=== PATIENT | male | born 1945 | race Caucasian/White ===

== ENCOUNTER → 2017-01-11 | Outpatient (CLI) | payer BC ==
[~2017-01-11] MED LIST: ESOM20CA PO; LPT40 PO; NAPR250T43 PO; TYLENOL PO
[2017-01-11 12:59] LABS: BLOOD UREA NITROGEN 25 mg/dl (7-18); BUN/CREATININE RATIO 20.6 (10-20); CARBON DIOXIDE 27 mmol/L (21-32); CHLORIDE 107 mmol/L (98-107); CHOLESTEROL 193 mg/dl (0-200); GLUCOSE 92 mg/dl (70-99); MAGNESIUM 2.3 mg/dl (1.8-2.4); POTASSIUM 4.3 mmol/L (3.5-5.1); SODIUM 143 mmol/L (136-145)
[2017-01-11 13:03] LABS: ALB/GLOB RATIO 1.2 (0.9-2); ALKALINE PHOSPHATASE 75 U/L (45-117); ALT/SGPT 25 U/L (12-78); AST/SGOT 19 U/L (15-37); CHOLESTEROL/HDL RATIO 3.3; HDL CHOLESTEROL 58 mg/dl; LDL CHOLESTEROL CALCULATED 117 mg/dl; TRIGLYCERIDES 90 mg/dl (0-150); VERY LOW DENSITY LIPOPROT CALC 18 mg/dl
--- NOTE | 2017-01-19 11:59 | CODING QUERY MEDICAL NECESSITY ---
CQSUPPORTING DIAGNOSIS NEEDED A supporting diagnosis is required for the test/procedure performed on this patient in order for us to be reimbursed by the patient's insurance. Please provide a supporting diagnosis for the following test/procedure listed below next to the test name along with your signature. *If there is no additional diagnosis for this patient that would support the following test/procedure please document that below next to the test/procedure. Test(s)/Procedure(s) that require a supporting diagnosis: DOS 01/11/17 VITAMIN D TEST PROSTATE SPECIFIC TEST (PSA) Provider Signature: Date: Thank you [facility] Once completed, please kindly fax back to [phone] For questions please call [phone]
== END | disposition home or self-care (01) ==
LOC: C.LABPVFM 08:01
PROVIDERS: ATTEND Family Medicine
DX: E78.5 Hyperlipidemia, unspecified (principal); K21.9 Gastro-esophageal reflux disease without esophagitis; I10 Essential (primary) hypertension; Z13.21 Encounter for screening for nutritional disorder; Z12.5 Encounter for screening for malignant neoplasm of prostate

== ENCOUNTER → 2017-03-14 | Outpatient (CLI) | payer BC ==
--- NOTE | 2017-03-14 10:15 | DIAGNOSTIC IMAGING REPORT ---
RIGHT KNEE 1 OR 2 VIEWS ROUTINE, RIGHT KNEES, AP STANDING CLINICAL HISTORY: ARTHRITIS, RIGHT KNEE PAIN Right COMPARISON STUDY: None. FINDINGS: There is moderate to severe right and mild left cartilage space narrowing within the medial compartments of the knees. There is also small marginal osteophytes within the right patella. Probable small right knee effusion. No fracture or dislocation. IMPRESSION: Moderate to severe right and mild left osteoarthritis within the medial compartments of the knees. Probable small right knee effusion. Electronically signed by: Yahir Nunez M.D. 03/14/2017 10:14 AM Dictated Date/Time: 03/14/2017 10:12 AM
== END | disposition home or self-care (01) ==
LOC: C.RADPV 09:29
PROVIDERS: ATTEND Neuromusculoskeletal Medicine & OMM
DX: M19.90 Unspecified osteoarthritis, unspecified site (principal); M25.561 Pain in right knee

== ENCOUNTER → 2017-09-22 | Outpatient (CLI) | payer BC ==
[~2017-09-22] MED LIST changes: +PERFLUTREN LIPID MICROSPHERE (DEFINITY) IV ONE
--- NOTE | 2017-09-22 14:15 | EXERCISE STRESS ECHO ---
*NOTICE TO RECEIVING CONSTITUTION PARTY AGENCY This information is strictly Confidential and protected under [place] law. [place] law prohibits you from making any further disclosure of this information unless further disclosure is expressly permitted by the written consent of the person to whom it pertains or is authorized by law. A general authorization for the release of medical or other information is not sufficient for this purpose. Hospital accepts no responsibility if the information is made available to any other person, INCLUDING THE PATIENT. Interpretation Summary * Name: BASHIR MCNULTY II Study Date: 09/22/2017 11:41 AM BP: 157/95 mmHg * Patient Location: [facility] HR: 83 * : 1945 (M/d/yyyy) Gender: Male Height: 71 in * Age: 72 yrs Ethnicity: [place] Weight: 210 lb * Ordering Physician: Lilibeth Bonner * Referring Physician: Lilibeth BonnerRJeffNYessy * Performed By: Reva Yin RDCS * * Reason For Study: Abnormal EKG * BSA: 2.2 m2 * -- Conclusions -- * 1. Normal stress echocardiogram at 6.7 METS and a peak heart rate of 95% predicted maximum. * 2. No exercise-induced chest pain. * 3. No EKG changes. * 4. Baseline echocardiogram notes normal left ventricular systolic function and evidence of diastolic dysfunction. Procedure Details * ECHOEX, CPT #[id number] * ECHO DOPPLER, CPT #[id number] * ECHO COLOR FLOW, CPT #[id number] * A contrast injection of Definity was performed to improve assessment of LV function. * Contrast was injected into an intravenous site in the left arm. * One vial of Definity ultrasound contrast was diluted in normal saline to a total volume of 10 ml. A total of '5' ml of solution was administered during imaging. * Lot # [id number] of Definity utilized for procedure. * Expiration date OCT 23. * The attending nurse who injected the contrast agent was Cary Adame RN. Left Ventricle * The left ventricle is normal in size. * There is borderline concentric left ventricular hypertrophy. * Ejection Fraction = 60-65%. * Resting wall motion: Normal. Stress wall motion: Appropriate increase in Left ventricular systolic function and decrease in cavity size. No stress induced segmental wall motion abnormalities. Right Ventricle * The right ventricle is not well visualized. * The right ventricular systolic function is normal as assessed by tricuspid annular plane systolic excursion (TAPSE) (normal >1.5 cm). Atria * The left atrium is moderately dilated. * Right atrium not well visualized. * There is no evidence of atrial septal defect, but resolution does not allow assessment for a patent foramen ovale. Mitral Valve * The mitral valve anatomy is normal. * There is no mitral valve stenosis. * There is trace mitral regurgitation. Tricuspid Valve * The tricuspid valve is not well visualized, but is grossly normal. * Significant tricuspid regurgitation is absent. Aortic Valve * The aortic valve is normal in structure and function. * No hemodynamically significant valvular aortic stenosis. * There is no significant aortic regurgitation. Pulmonic Valve * The pulmonary valve is not well seen, but the Doppler examination is normal without significant regurgitation or stenosis. Great Vessels * The aortic root and proximal ascending aorta are normal sized. Pericardium * There is no pericardial effusion. Stress Parameters * The baseline ECG displays normal sinus rhythm. * Stress ECG: No ST changes. No arrhythmias. * The stress portion of this study was personally supervised by the undersigned interpreting physician. * Rest heart rate was '83' BPM. * Rest blood pressure was '157/95' * Maximum heart rate achieved was 181 bpm. * Maximum heart rate was 120 % of maximum age-predicted heart rate. * Maximum blood pressure was '213/117' * Total exercise time was '4:49' * Maximum exercise MET level achieved was '6.70' METS * Maximum treadmill speed was '2.50' miles per hour. * Maximum treadmill elevation was '12.00'% grade. * Exercise was terminated due to 'achieving target heart rate' Left Ventricular Diastolic Function * Grade I diastolic dysfunction, (abnormal relaxation pattern). MMode 2D Measurements and Calculations IVSd 1.1 cm LVIDd 4.8 cm LVIDs 3.3 cm LVPWd 1.1 cm IVS/LVPW 0.97 FS 31.0 % EDV(Teich) 106.6 ml ESV(Teich) 44.1 ml EF(Teich) 58.6 % EDV(cubed) 109.4 ml ESV(cubed) 35.9 ml EF(cubed) 67.1 % LV mass(C)d 186.9 grams LV mass(C)dI 86.8 grams/m\S\2 SV(Teich) 62.5 ml SI(Teich) 29.0 ml/m\S\2 SV(cubed) 73.4 ml SI(cubed) 34.1 ml/m\S\2 Ao root diam 3.3 cm Ao root area 8.6 cm\S\2 ACS 1.9 cm LA dimension 3.3 cm asc Aorta Diam 3.3 cm LA/Ao 0.98 LVOT diam 2.0 cm LVOT area 3.2 cm\S\2 LVAd ap4 26.6 cm\S\2 LVLd ap4 7.4 cm EDV(MOD-sp4) 77.5 ml EDV(sp4-el) 80.8 ml LVAs ap4 14.4 cm\S\2 LVLs ap4 6.2 cm ESV(MOD-sp4) 28.0 ml ESV(sp4-el) 28.5 ml EF(MOD-sp4) 63.9 % EF(sp4-el) 64.7 % LVAd ap2 21.7 cm\S\2 LVLd ap2 6.7 cm EDV(MOD-sp2) 57.1 ml EDV(sp2-el) 59.7 ml LVAs ap2 12.0 cm\S\2 LVLs ap2 5.7 cm ESV(MOD-sp2) 20.1 ml ESV(sp2-el) 21.5 ml EF(MOD-sp2) 64.8 % EF(sp2-el) 64.0 % LVLd %diff -10.14 % EDV(MOD-bp) 69.4 ml LVLs %diff -8.13 % ESV(MOD-bp) 24.0 ml EF(MOD-bp) 65.5 % SV(MOD-sp4) 49.6 ml SI(MOD-sp4) 23.0 ml/m\S\2 SV(MOD-sp2) 37.0 ml SI(MOD-sp2) 17.2 ml/m\S\2 SV(MOD-bp) 45.4 ml SI(MOD-bp) 21.1 ml/m\S\2 SV(sp4-el) 52.3 ml SI(sp4-el) 24.3 ml/m\S\2 SV(sp2-el) 38.2 ml SI(sp2-el) 17.7 ml/m\S\2 Doppler Measurements and Calculations MV E max kassidy 50.0 cm/sec MV A max kassidy 63.5 cm/sec MV E/A 0.79 MV dec time 0.29 sec Ao V2 max 115.4 cm/sec Ao max PG 5.3 mmHg Ao max PG (full) 1.6 mmHg BEBE(V,A) 2.6 cm\S\2 BEBE(V,D) 2.6 cm\S\2 LV V1 max PG 3.7 mmHg LV V1 max 96.0 cm/sec PA V2 max 78.7 cm/sec PA max PG 2.5 mmHg PA acc slope 701.3 cm/sec\S\2 PA acc time 0.08 sec PA pr(Accel) 44.1 mmHg
== END | disposition home or self-care (01) ==
LOC: C.CPL 11:24
PROVIDERS: ATTEND Nurse Practitioner
DX: R94.31 Abnormal electrocardiogram [ECG] [EKG] (principal); R06.09 Other forms of dyspnea; I49.9 Cardiac arrhythmia, unspecified

== ENCOUNTER → 2018-01-15 | Outpatient (CLI) | payer BC ==
[~2018-01-15] MED LIST changes: -PERFLUTREN LIPID MICROSPHERE (DEFINITY) IV ONE
[2018-01-15 13:15] LABS: BLOOD UREA NITROGEN 22 mg/dl (7-18); CALCIUM 9.1 mg/dl (8.5-10.1); CARBON DIOXIDE 31 mmol/L (21-32); CHOLESTEROL 144 mg/dl (0-200); CREATININE 1.28 mg/dl (0.60-1.40); GLUCOSE 93 mg/dl (70-99); POTASSIUM 4.4 mmol/L (3.5-5.1); SODIUM 140 mmol/L (136-145)
[2018-01-15 13:19] LABS: LDL CHOLESTEROL CALCULATED 79 mg/dl
== END | disposition home or self-care (01) ==
LOC: C.LABPVFM 08:29
PROVIDERS: ATTEND Nurse Practitioner
DX: I10 Essential (primary) hypertension (principal); E78.5 Hyperlipidemia, unspecified

== ENCOUNTER 2019-12-10 04:51 | Observation (INO) ==
--- NOTE | 2019-11-13 13:33 | PAT Medication Instructions ---
Medication Instructions Date of Service November 13, 2019 Home Medications Medication Instructions Recorded esomeprazole magnesium 20 mg 20 mg PO DAILY PRN #90 cap 08/01/19 capsule,delayed release esomeprazole magnesium 20 mg capsule,delayed release 20 mg PO DAILY PRN atorvastatin 20 mg PO QAM celecoxib 200 mg PO QAM lisinopril 20 mg PO QAM turmeric 400 mg PO QAM ASK your surgeon for instructions celecoxib 200 mg PO QAM STOP taking 2 weeks before surgery (or as soon as possible if surgery is within 2 weeks) turmeric 400 mg PO QAM DO NOT take the morning of surgery lisinopril 20 mg PO QAM Take morning of surgery With a small sip of water, OTHERWISE NOTHING TO EAT OR DRINK AFTER MIDNIGHT: esomeprazole magnesium 20 mg capsule,delayed release 20 mg PO DAILY PRN (if needed) atorvastatin 20 mg PO QAM Take evening before surgery esomeprazole magnesium 20 mg capsule,delayed release 20 mg PO DAILY PRN (if needed) Other Notes If you have any questions please call us at [phone] or [phone] or [phone] or [phone]
--- NOTE | 2019-11-14 09:41 | Anesthesiology Consultation ---
Date of Service November 14, 2019 Assessment & Plan (1) Encounter for pre-operative examination: New onset a. flutter: patient denied cardiopulmonary complaints at PAT visit and vitals unremarkable. Patient brought to ER for further evaluation. Surgeon office made aware. Patient evaluated at [facility] ER 11/14/19. Patient asymptomatic and rate controlled. Discussed recommendation to start Eliquis but patient wishes to defer at this time (patient made aware of the risks/benefits). Patient will need cardiology preop evaluation prior to surgery- he is scheduled to see cardiology 11/27/19. Awaiting cardiology office visit note. Chart Review Chart Review: Patient seen in Pre Admission Testing Teaching & Discussion Pre-Anesthesia Teaching/Discussion Notes: Instructed NPO after midnight before surgery,except medications with 15 cc of water. Medication instructions provided according to the [facility] guidelines. History Surgery Operation Date: 12/10/19 12:30 Proposed Procedures p Right Total Knee Arthroplasty - Amadou Liang MD Height/Weight Height: 5 ft 11 in Weight: 99.9 kg Allergies Allergy/AdvReac Type Severity Reaction Status Date / Time No Known Drug Allergies Allergy Verified 11/14/19 11:30 Medications Home Medications Medication Instructions Recorded Confirmed Last Taken esomeprazole magnesium 20 mg 20 mg PO DAILY PRN #90 cap 08/01/19 11/14/19 11/14/19 capsule,delayed release atorvastatin 20 mg PO QAM 11/11/19 11/14/19 11/14/19 celecoxib 200 mg PO QAM 11/11/19 11/14/19 11/14/19 lisinopril 20 mg PO QAM 11/11/19 11/14/19 11/14/19 turmeric 400 mg PO QAM 11/11/19 11/14/19 11/14/19 Wheeled Walker #1 ea 11/14/19 11/14/19 Unknown Past Medical History Medical History Arthritis Atrial flutter new onset diagnosed at PAT visit 11/14/19- sent to [facility] ER DJD (degenerative joint disease) of knee GERD (gastroesophageal reflux disease) controlled Hyperlipidemia Hypertension Osteoarthritis Renal insufficiency, mild Exercise / Class Metabolic Activity II 4-5 Yardwork/Stairs/Walk up hill Past Family History Family History Father Family hx of colon cancer Other Myocardial infarction Past Surgical History Surgical History History of testicular surgery REMOVAL CYST Hx of colonoscopy Hx of hand surgery RIGHT RING FINGER (2/2 INFECTION) 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 Physical Exam Vital Signs VITALS BP 154/92 P 71 TEMP 98.9 SP02 RESP 16 PHYSICAL Mildly decreased cervical exentsion Full TMJ range of motion. TMD 4 finger breaths Mallampati Score 3 Dentition: intact Lungs: clear throughout to auscultation Cardiac: regular rate and rhythm, no murmurs noted Spine: normal Carotid arteries: negative bruit Extremities: no edema Testing Laboratory Results 11/14/19 10:26 11/14/19 10:26 PT 10.7 Seconds (9.0-12.0) 11/14/19 10:26 INR 1.0 (0.9-1.1) 11/14/19 10:26 APTT 26.2 Seconds (21.0-31.0) 11/14/19 10:26 Blood Type A Negative 11/14/19 10:26 Antibody Screen NEGATIVE 11/14/19 10:26 Electrocardiogram Date: 11/14/19 A. flutter with variable AVB at 84bpm. iRBBB. Possible inferior infarct, age undetermined. Chest X-Ray Date: 11/14/19 Moderate cardiac enlargement. Tortuosity thoracic aorta. Small fixed hiatal hernia. Lungs otherwise appear clear. Stress Test Date: 09/22/17 Type: exercise Normal stress ECHO at 6.7 METS. 95% MPHR. No induced chest pain. No EKG changes. EF 60-65%. Borderline cLVH. Moderate LAD. No significant valvular disease.
[2019-11-14 11:15] LABS: Basophils # (auto) 0.02 K/uL (0-0.2); Basophils % (auto) 0.3 %; Eosinophils # (auto) 0.13 K/uL (0-0.5); Eosinophils % (auto) 2.3 %; Hemoglobin 15.8 g/dL (14.0-18.0); Immature Granulocytes # (auto) 0.01 K/uL (0.00-0.02); Immature Granulocytes % (auto) 0.2 %; Lymphocytes # (auto) 0.75 K/uL (1.2-3.4); Mean Corpuscular Hemoglobin 32.8 pg (25-34); Mean Corpuscular Hgb Conc 33.6 g/dL (32-36); Mean Corpuscular Volume 97.5 fL (80-100); Mean Platelet Volume 11.1 fL (7.4-10.4); Monocytes # (auto) 0.49 K/uL (0.11-0.59); Monocytes % (auto) 8.5 %; Neutrophils # (auto) 4.35 K/uL (1.4-6.5); Neutrophils % (auto) 75.7 %; Platelet Count 137 K/uL (130-400); RDW Coefficient of Variation 13.6 % (11.5-14.5); RDW Standard Deviation 48.7 fL (36.4-46.3); Red Blood Count 4.82 M/uL (4.7-6.1); White Blood Count 5.75 K/uL (4.8-10.8)
[2019-11-14 11:23] LABS: BUN Creatinine Ratio 17.3 (10-20); Calcium 9.1 mg/dl (8.5-10.1); Creatinine Clr Calc Pharmacy 58.7 ml/min; Est GFR (African American) 59.3; Est GFR (Non-African American) 51.2; Potassium 4.5 mmol/L (3.5-5.1)
[2019-11-14 11:37] LABS: Partial Thromboplastin Time 26.2 Seconds (21.0-31.0); Prothrombin Time 10.7 Seconds (9.0-12.0)
--- NOTE | 2019-11-14 23:41 | Electrocardiogram Report ---
Test Reason : Blood Pressure : / mmHG Vent. Rate : 099 BPM Atrial Rate : 264 BPM P-R Int : 000 ms QRS Dur : 102 ms QT Int : 350 ms P-R-T Axes : 000 113 -15 degrees QTc Int : 449 ms Atrial flutter with variable A-V block Incomplete right bundle branch block Possible Right ventricular hypertrophy T wave abnormality, consider inferior ischemia Abnormal ECG No previous ECGs available Confirmed by Cooper Villegas ([id number]) on 11/14/2019 11:41:40 PM Referred By: Amadou Liang Confirmed By:Cooper Villegas
--- NOTE | 2019-12-06 20:30 | History and Physical Report ---
DATE OF ADMISSION: 12/10/2019 CHIEF COMPLAINT: Bilateral knee pain and discomfort, right side greater than left. HISTORY OF PRESENT ILLNESS: The patient is a 74-year-old male, previous yoon from [place] who presents on a referral from my partner, Dr. Rhodes, for surgical treatment of his knees. He has got about 10-year history of increasing bilateral knee pain and discomfort, right side a bit worse than the left. He has been through extensive conservative treatment in the past and is not interested in more conservative care. He is limited by his knee pain. He is walking less due to his knee pain and using the 4-kerns more. It is mostly just weightbearing pain. The more he walks, the more it hurts. He has difficulty going up and down steps. He would like to consider surgery. PAST MEDICAL HISTORY: 1. Congenital heart disease with subsequent surgery at age 10. 2. History of recent atrial flutter with rate control with beta martha and anticoagulation. 3. Hypertension. 4. Elevated cholesterol. 5. Gastroesophageal reflux disease. PAST SURGICAL HISTORY: Includes heart surgery in 8 in [place] for what sounds like a patent foramen ovale. ALLERGIES: None. CURRENT MEDICINES: Include: 1. Celebrex. 2. Nexium. 3. Atorvastatin 20 mg. 4. Omeprazole 20 mg. 5. Lisinopril 20 mg a day. 6. Turmeric 400 mg a day. 7. Metoprolol for rate control of his atrial flutter. 8. Eliquis 5 mg twice a day. SOCIAL HISTORY: A 74-year-old male. He is . Retired yoon. Does not smoke. No significant alcohol intake. FAMILY HISTORY: Noncontributory. REVIEW OF SYSTEMS: Significant for this congenital heart abnormality. He did have a recent diagnosis of atrial flutter and now on a beta martha as well as Eliquis. He has had extensive cardiac workup and cleared for surgery. No known bleeding problems. PHYSICAL EXAMINATION: GENERAL: Shows a healthy, pleasant, elderly male. Looks to be in good health. HEENT: Benign. NECK: Supple, no lymphadenopathy. LUNGS: Clear to auscultation. HEART: Regular rate and rhythm. ABDOMEN: Soft, nontender, nondistended. EXTREMITIES: Grossly neurovascularly intact except as follows: Examination of the right knee reveals the patient ambulates independently. He has got varus alignment to his knee. He is tender over the medial joint line. Range of motion is 5 degrees short of full extension to 120 degrees of flexion. There is no gross instability. No pain with hip motion. Negative straight leg raise. X-RAYS: X-rays of the right knee revealed advanced right knee DJD. He has got complete loss of his medial joint space. He has subchondral sclerosis with osteophytes primarily in the medial compartment. ASSESSMENT: A 74-year-old male yoon with bilateral knee pain, degenerative joint disease, right side worse than the left. He is not interested in further conservative care and wants to proceed with right knee replacement. PLAN: We talked about treatment. He would like to proceed with right knee replacement. The risks and benefits of right total knee replacement were explained to the patient including but not limited to DVT, PE, , infection, neurological injury, vascular injury, bleeding problem, pain, limited range of motion, stiffness, failure to relieve symptoms, incomplete relief of symptoms, need for further surgery in the future, fracture, leg length inequality, nerve palsy, etc. The patient understands and desires to proceed. Informed consent was obtained. At the time of his preoperative workup, we sent him to the hospital and he developed some cardiac symptoms. He was seen in the ER and diagnosed with atrial flutter. Since then, he has had an extensive cardiac workup including an echo, which showed pretty good heart function. He has been put on a beta martha and anticoagulation and cleared for surgery. He will need to stop this Eliquis 3 days preop. Take the metoprolol on the morning of surgery. He is planning to be discharged to home using [facility] home health program. DEEDEE
[2019-12-10] MEDS ORDERED: CEFAZOLIN 2000MG 2,000 MG/15 ML SYR IV SCH (06:00)
[2019-12-10] MEDS ORDERED: TRANEXAMIC ACID / 0.7% NACL 1,000 MG/100 ML BAG IV SCH (06:00)
[2019-12-10] MEDS ORDERED: METOCLOPRAMIDE HCL 10 MG TABLET PO SCH (06:00)
[2019-12-10] MEDS ORDERED: FAMOTIDINE 20 MG TAB PO SCH (06:00)
[2019-12-10] MEDS ORDERED: LR 60ML/HR IV SCH (06:00)
[2019-12-10] MEDS ORDERED: BUPIVACAINE LIPOSOME/PF 266 MG, BUPIVACAINE/EPINEPHRINE 50 ML, SODIUM CHLORIDE 0.9% 30 ... INFIL SCH (06:00)
[2019-12-10] MEDS ORDERED: LR 500ML BOLUS, THEN 15ML/HR IV SCH (06:00)
[2019-12-10] MEDS ORDERED: ACETAMINOPHEN 500 MG TAB PO SCH (06:00)
[2019-12-10] MEDS ORDERED: GABAPENTIN 300 MG CAP PO SCH (06:00)
[2019-12-10] MEDS ORDERED: fentaNYL citrate 100 MCG/2 ML VIAL ONE (06:23)
[2019-12-10] MEDS ORDERED: MIDAZOLAM HCL 1 MG/ML 2ML VIAL ONE (06:23)
[2019-12-10] MEDS ORDERED: BUPIVACAINE/EPINEPHRINE 0.25% 1:200,000 30 ML VIAL ONE (06:31)
[2019-12-10] MEDS ORDERED: BUPIVACAINE LIPOSOME 1.3% 266 MG/20 ML VIAL ONE (06:31)
[2019-12-10] MEDS ORDERED: SODIUM CHLORIDE 0.9% PF 50 ML VIAL ONE (06:31)
[2019-12-10] MEDS ORDERED: BACITRACIN INJ 50,000 UNIT VIAL ONE (06:31)
[2019-12-10] MEDS ORDERED: fentaNYL citrate 100 MCG/2 ML VIAL IV PRN (06:35)
[2019-12-10] MEDS ORDERED: ATROPINE SULFATE 0.1 MG/ML 10ML SYR IV PRN (06:35)
[2019-12-10] MEDS ORDERED: BUPIVACAINE 0.5 % 5 MG/1 ML PF 10ML VIAL ONE (06:35)
[2019-12-10] MEDS ORDERED: ePHEDrine sulfate 50 MG/ML AMP IV PRN (06:35)
[2019-12-10] MEDS ORDERED: ONDANSETRON INJ 2 MG/ML 2 ML VIAL IV PRN ×2 (06:35→09:46)
--- NOTE | 2019-12-10 06:48 | History & Physical Bridge Note ---
Date of Service December 10, 2019 History & Physical Bridge Note I have examined the patient, reviewed the History & Physical and in the interval since the performance of the History & Physical I have noted the following changes of clinical significance: no changes noted
[2019-12-10] MEDS ORDERED: PROPOFOL IV EMULSION 10 MG/ML 20 ML VIAL IV ONE (07:05)
--- NOTE | 2019-12-10 08:39 | Post Operative Brief Note ---
PG Immediate Post Op with CF Date of Surgery December 10, 2019 Pre & Post Diagnosis Operation Date: 12/10/19 07:00 Pre-Op Diagnosis: Right Knee Advanced Degenerative Joint Disease Post-Op Diagnosis: Right Knee Advanced Degenerative Joint Disease I identified the patient and participated in the time-out.: Yes Procedure Operation Date: 12/10/19 07:00 Actual Procedures p Right Total Knee Arthroplasty(Right) - Amadou Liang MD Surgeon Amadou Liang MD Quality Eng Thuan, PAC Estimated Blood Loss 50 Findings Consistent with Post-Op Diagnosis Fluids 1100 cc Specimens Specimen Description: A. Right Knee Bone and Tissue Drains Esquivel Catheter (A 16 [place]oth[place] esquivel catheter was inserted by HONG Mitchell, without difficulty, clear yellow urine obtained, output to be monitored by Anesthesia.) Anesthesia Type Spinal MAC Complications none Disposition Accompanied Patient To Recovery: No Disposition: Recovery Room
--- NOTE | 2019-12-10 08:50 | Operative Report ---
Post Operative Report Pre & Post Diagnosis Operation Date: 12/10/19 07:00 Pre-Op Diagnosis: Right Knee Advanced Degenerative Joint Disease Post-Op Diagnosis: Right Knee Advanced Degenerative Joint Disease I identified the patient and participated in the time-out.: Yes Procedure Operation Date: 12/10/19 07:00 Actual Procedures p Right Total Knee Arthroplasty(Right) - Amadou Liang MD Surgeon Amadou Liang MD Bomb Technician Thuan, PAC Estimated Blood Loss 50 Findings Consistent with Post-Op Diagnosis Operative findings revealed advanced right knee DJD. He had extensive grade 4 changes in all 3 compartments. He had eburnation of the medial femoral condyle medial tibial plateau. His most severe changes were medially. He had a moderate-sized joint effusion. He had a fixed varus deformity to his knee. Fluids 1100 cc. Specimens Right knee sent for pathology. Drains None. Anesthesia Type Spinal MAC Complications none Disposition Accompanied Patient To Recovery: No Disposition: Recovery Room Indications Patient is a 74-year-old fairly active yoon who is had a long history of bilateral knee pain discomfort right side greater than left. Is been through extensive conservative treatment the past which is become less successful. He continues to be bothered by disabling and knee pain. X-rays show advanced DJD. Elected proceed with surgical treatment. Description of Procedure Operative implants consisted of: 1. Biomet Vanguard size 70 right posterior box femoral component. 2. Biomet size 71 tibial tray. 3. 10 mm posterior stabilized polyethylene insert. 4. 31 x 8 all poly-patella. Patient was taken to the operating room identified and placed in the operating table supine position protectors were properly padded. IV antibiotics arrived by anesthesia team. A spinal anesthetic and abductor canal block had been provided in the holding area. Win catheter was placed in sterile fashion. Right thigh turn was then placed in the right lower extremities and prepped and draped in the usual sterile fashion. The right leg was elevated and exsanguinated with use of an Esmarch and turns placed at 3 mmHg. An anterior approach to the right knee was then performed to longitudinal incision centered over the patella. Sharp dissection was cut through subcutaneous tissue down below the extensor mechanism. A medial parapatellar arthrotomy incision was made. Some subperiosteal dissection was carried out medially. The fat pad was resected from each patella tendon. Lateral patellofemoral ligament was released. Patella was subluxated laterally and the knee was flexed. The osteophytes were taken off the distal femur. The ACL and PCL were then released in the distal femur and the tibia subluxated anteriorly. The external tibial alignment jig was then placed in the interface the tibia and adjusted to 14 mm medially. Proximal tibial cut was made to move about a millimeter or 2 of bone from most efficient aspect the medial tibial plateau. Some osteophytes were taken off medial and posterior medially. The tibia sized to a size 71. Attention drawn the femur. The distal femur was entered with a sharp drop with intramedullary canal was suction. A right 6 degree valgus cutting guide was placed. Distal femoral cutting block was pinned in place. Distal femoral cut was made to take an additional 3 mm of bone off distal femur. The femur was then sized to a size 70. We did downsize this slightly. The AP cutting block was pinned parallel to the epicondylar axis which was 3 degrees of external rotation with anterior cut, anterior chamfer, posterior cut, posterior chamfer cuts were made. Box cutting guide was placed and just slightly lateral and the box cut was made. The knee was flexed. The remnants of the medial lateral menisci were excised. The osteophytes were taken off the posterior aspect of the femur. A trial femoral component was placed. The tibial tray was pinned in maximum external rotation and the drill and stem punch were used to create defect in proximal tip for the tibial tray. Knee was then trialed and the 10 mm insert fit most appropriately. Attention drawn the patella. The patella was cleaned of all soft tissues. Patella thickness measured 25 mm in thickness was cut down to 15. Size a size 31 patella. The locals were drilled for 31 patella. Lateral osteophytes removed. Patella button was placed. Knee was taken through range of motion patella tracked nicely with no thumbs test. Attention drawn to place the permanent components. All trial components removed. Bone plug was placed in the distal femur limit blood loss put a double batch Palacos G cement was mixed. A Biomet Vanguard size 70 right posterior by femoral component, size 71 tibial tray, 10 mm posterior box polyethylene insert, and a 31 x 8 all poly-patella were then c emented in place. Knee was brought out into full extension total cement hardened. Final cement check was then performed. The pericapsular tissues were injected with total of 100 cc of a combination of 20 cc of Exparel, 30 cc normal saline, 50 cc of quarter percent Marcaine with epinephrine. Patient did receive 1 g of tranexamic acid. The tourniquet was then let down for final tourniquet time of 58 minutes. Hemostasis assured use electrocautery. Wounds once again irrigated. The extensor mechanism then closed with combination 1 PDS suture #1 Vicryl suture in [id number] fashion. Extensor mechanism checked found to be intact with subcutaneous tissue then closed with 2 Dexon suture in a buried interrupted fashion skin was closed skin harmeet. Leg was then cleaned dried a sterile dressing composed of Xeroform, 4 x 4's, sterile cast padding, Jeb bandage were applied. Patient then transferred to the recovery room in stable condition. Patient tolerated the procedure well no complications. I attest to the content of the Intraoperative Record and any orders documented therein. Any exceptions are noted below.
--- NOTE | 2019-12-10 09:12 | Anesthesiology Progress Note ---
Date of Service December 10, 2019 Anesthesia Post Procedure Vital Signs Vital Signs: Temp Pulse Pulse Resp BP Pulse Ox 12/10/19 09:00 101 H 18 128/83 95 12/10/19 08:50 92 H 14 99/74 L 95 12/10/19 08:44 96.6 F L 101 H 16 120/75 97 12/10/19 05:46 98.1 F 90 20 150/112 H 97 Transfer of Care Handoff Completed per policy Notes Mental Status: alert / awake / arousable and participated in evaluation Patient Amnestic to Procedure: Yes Nausea / Vomiting: adequately controlled Pain: adequately controlled Airway Patency, RR, SpO2: stable & adequate BP & HR: stable & adequate Hydration State: stable & adequate Neuraxial Anesthesia: was administered and sensory block is resolving Anesthetic Complications: no major complications apparent and Pt Satisfied with anesthetic care
--- NOTE | 2019-12-10 09:30 | XRay Report ---
XR knee RT 1 or 2V routine HISTORY: 74 years-old Male Surgical Post Op right knee total joint arthroplasty. History of degenera tive joint disease COMPARISON: Right knee radiographs 03/14/2017 TECHNIQUE: 2 views of the right knee FINDINGS: Right knee total joint arthroplasty and patella resurfacing. Anterior midline skin harmeet are noted along with expected postsurgical soft tissue swelling and deep tissue air with surgical drainage cath eter. Satisfactory alignment without acute fracture or retained foreign body. IMPRESSION: Right knee total joint arthroplasty with expected postoperative findings. ACT 112: Negative or not required by law. The above report was generated using voice recognition software. It may contain grammatical, syntax o r spelling errors. Electronically signed by: Denis Ly M.D. 12/10/2019 9:28 AM
[2019-12-10] MEDS ORDERED: NALOXONE HCL 0.4 MG/1 ML VIAL/CARP IV PRN (09:46)
[2019-12-10] MEDS ORDERED: METOCLOPRAMIDE HCL INJ 5 MG/ML 2 ML VIAL IV PRN (09:46)
[2019-12-10] MEDS ORDERED: PANTOprazole 40 MG TAB PO PRN (09:46)
[2019-12-10] MEDS ORDERED: TAMSULOSIN HCL 0.4 MG CAP PO PRN (09:46)
[2019-12-10] MEDS ORDERED: MAGNESIUM HYDROXIDE SUSP 30 ML UDC PO PRN (09:46)
[2019-12-10] MEDS ORDERED: bisacodyL 10 MG SUPP PR PRN (09:46)
[2019-12-10] MEDS ORDERED: ALUMINUM/MAGNESIUM SUSP 30 ML UDC PO PRN (09:46)
[2019-12-10] MEDS ORDERED: HYDROmorphone INJ 0.5 MG/0.5 ML SYR IV PRN (09:46)
[2019-12-10] MEDS: SODIUM CHLORIDE 0.9% 1000ML 1,000 ML IV SCH ×2 (11:31→21:09)
[2019-12-10] MEDS: MULTIVITAMIN TAB PO SCH (11:32)
[2019-12-10] MEDS: lisinopriL 20 MG TAB PO SCH (11:32)
[2019-12-10] MEDS: ATORVASTATIN 20 MG TAB PO SCH (11:32)
[2019-12-10] MEDS: DOCUSATE SODIUM 100 MG CAP PO SCH ×2 (11:32→20:38)
[2019-12-10] MEDS: KETOROLAC TROMETHAMINE 15 MG/ML VIAL IV SCH ×3 (11:38→22:10)
--- NOTE | 2019-12-10 13:51 | Progress Notes ---
DATE: 12/10/2019 SUBJECTIVE: 74-year-old gentleman and yoon now postop from a right knee replacement. He is doing well. Just starting to get a little bit of discomfort in his thigh area. No chest pain or shortness of breath. Not feeling dizzy or lightheaded. OBJECTIVE: VITAL SIGNS: Temperature 36.7. Vital signs stable. GENERAL: Pleasant elderly male. He is sitting up in bed, looks entirely comfortable. LUNGS: Clear to auscultation. HEART: Has regular rate and rhythm. ABDOMEN: Soft, nontender, nondistended. EXTREMITIES: Grossly neurovascularly intact except as follows: Examination of the right lower extremity reveals the leg to be well aligned. He can dorsiflex and plantarflex his foot appropriately. He has brisk refill. Dressing is clean, dry and intact. X-RAYS: X-rays of the right knee from recovery room reviewed. It shows cemented posterior stabilized total knee arthroplasty. Components looked to be in good position. No signs of problems. ASSESSMENT: 74-year-old gentleman postop from a right knee replacement, doing well. Pain is controlled. He is neurologically intact. He does have a relatively recent onset of atrial flutter and his rate is controlled. No cardiac symptoms. PLAN: 1. DVT prophylaxis including thigh-high TEDS, SCDs, and we will start him back on his Eliquis. We will start at a prophylactic dose 24 hours postop and then increase to a full dose 48 hours postop. 2. PT/OT. Weightbear as tolerated. Right total knee protocol. 3. Pain control, doing pretty well with current pain regimen. 4. IV antibiotics x24 hours. 5. Disposition: He is planning to be discharged to home with some home health once medically stable and recovered.
[2019-12-10] MEDS: ACETAMINOPHEN 500 MG TAB PO SCH ×2 (14:10→21:05)
[2019-12-10] MEDS: CEFAZOLIN 2000MG 2,000 MG/15 ML SYR IV SCH ×2 (14:10→22:15)
[2019-12-10] MEDS: FERROUS GLUCONATE 324 MG TAB PO SCH (17:56)
[2019-12-10] MEDS: ASCORBIC ACID 500 MG TAB PO SCH (17:56)
[2019-12-10] MEDS: SENNA 8.6 MG TAB PO SCH (20:38)
[2019-12-11] MEDS: KETOROLAC TROMETHAMINE 15 MG/ML VIAL IV SCH (03:50)
[2019-12-11] MEDS: ACETAMINOPHEN 500 MG TAB PO SCH ×3 (05:17→21:13)
[2019-12-11 05:29] LABS: Hematocrit (blood only) 35.6 % (42-52); Hemoglobin 11.9 g/dL (14.0-18.0); Mean Corpuscular Hemoglobin 31.8 pg (25-34); Mean Corpuscular Hgb Conc 33.4 g/dL (32-36); Mean Corpuscular Volume 95.2 fL (80-100); Mean Platelet Volume 10.8 fL (7.4-10.4); Platelet Count 118 K/uL (130-400); RDW Coefficient of Variation 13.7 % (11.5-14.5); RDW Standard Deviation 47.7 fL (36.4-46.3); Red Blood Count 3.74 M/uL (4.7-6.1); White Blood Count 7.85 K/uL (4.8-10.8)
[2019-12-11 05:54] LABS: BUN Creatinine Ratio 14.8 (10-20); Creatinine Clr Calc Pharmacy 55.1 ml/min; Est GFR (African American) 55.4; Est GFR (Non-African American) 47.8; Potassium 4.2 mmol/L (3.5-5.1)
[2019-12-11] MEDS: FERROUS GLUCONATE 324 MG TAB PO SCH ×2 (08:53→17:54)
[2019-12-11] MEDS: ATORVASTATIN 20 MG TAB PO SCH (08:53)
[2019-12-11] MEDS: MULTIVITAMIN TAB PO SCH (08:53)
[2019-12-11] MEDS: lisinopriL 20 MG TAB PO SCH (08:53)
[2019-12-11] MEDS: ASCORBIC ACID 500 MG TAB PO SCH ×2 (08:54→17:54)
[2019-12-11] MEDS: DOCUSATE SODIUM 100 MG CAP PO SCH ×2 (08:54→21:13)
[2019-12-11] MEDS: METOPROLOL SUCC 50MG EXT REL TAB PO SCH (08:54)
[2019-12-11] MEDS: APIXABAN 2.5 MG TAB PO SCH ×2 (12:05→21:13)
--- NOTE | 2019-12-11 12:56 | Progress Notes ---
DATE: 12/11/2019 SUBJECTIVE: A 74-year-old gentleman who is relatively new onset atrial flutter now postop day 1 from a right knee replacement. He is doing pretty well. It has been more painful today than yesterday. He has had some nausea when getting up and around. Denies any chest pain or shortness of breath. Not feeling dizzy or lightheaded. OBJECTIVE: VITAL SIGNS: Temperature 36.9. Vital signs are stable. He is actually a little hypertensive with last blood pressure check. EXTREMITIES: Examination of the right leg reveals the leg to be well aligned. Dressings in place. There is a little bit of bloody drainage anteriorly. He can dorsiflex and plantarflex his foot appropriately. He is neurologically intact. LABORATORY DATA: Hemoglobin is 11.9. Hematocrit 35.6. Electrolytes are stable. Creatinine stable 1.45. ASSESSMENT: A 74-year-old gentleman postop day 1 from left knee replacement, doing pretty good. He has a little bit of troubles with nausea and a little bit of hypotension when getting up and walking which should improve with time. His pain is reasonably well controlled. He is neurologically intact. PLAN: 1. DVT prophylaxis including thigh-high TEDs, SCDs, and we are going to start him back on his Eliquis today at a prophylactic dose for the next day or two and then a full dose after that. 2. PT/OT. Weight bear as tolerated. Right total knee protocol. 3. Pain control, doing okay with current pain regimen. 4. Disposition: He is planning to be discharged to home with some home health once adequately recovered and medically stable. With his underlying heart history, we are going to need to make sure his heart is functioning well and he is asymptomatic from an ambulatory standpoint before he is discharged.
[2019-12-11] MEDS: TRAMADOL HCL 50 MG TABLET PO PRN ×2 (15:39→16:25)
[2019-12-11] MEDS: SENNA 8.6 MG TAB PO SCH (21:13)
[2019-12-12] MEDS: ACETAMINOPHEN 500 MG TAB PO SCH ×2 (05:24→14:15)
--- NOTE | 2019-12-12 07:52 | Progress Notes ---
DATE: 12/12/2019 SUBJECTIVE: A 74-year-old gentleman postop day #2 from right knee replacement. He is doing pretty well. Dizzy and nausea seems to be improved. Still has some tachycardia but asymptomatic. Denies any chest pain or shortness of breath. OBJECTIVE: VITAL SIGNS: Temperature 37.5. Vital signs stable. Still slightly tachycardic at about 100. GENERAL: Shows a pleasant, middle-aged male. He is sitting up on bed, looks completely comfortable. EXTREMITIES: Examination of the right leg reveals the dressing to be clean, dry and intact. No significant drainage. Calf is soft and supple. He is neurologically intact. ASSESSMENT: A 74-year-old gentleman with a relatively new onset atrial flutter on postop day #2 from right knee replacement, doing pretty well. He has had some intermittent tachycardia and blood pressure variability. His symptoms seem to be a result from the nausea and the dizziness. He is completely asymptomatic for the past 24 hours. PLAN: 1. DVT prophylaxis including thigh-high TEDs, SCDs, and back on his Eliquis. We will keep him on a prophylactic dose in the hospital Go back to therapeutic dose on discharge. 2. PT/OT. He can weightbear as tolerated. Right total knee protocol. 3. Tachycardia. We are going to have the turnaround planner check on him today and see if we need to do any adjustment in Medicine before discharge. 4. Disposition: He is planning to be discharged to home with some home health. We will see how therapy goes today and cardiology evaluation before discharge.
[2019-12-12] MEDS: lisinopriL 20 MG TAB PO SCH (08:38)
[2019-12-12] MEDS: ATORVASTATIN 20 MG TAB PO SCH (08:38)
[2019-12-12] MEDS: METOPROLOL SUCC 50MG EXT REL TAB PO SCH (08:38)
[2019-12-12] MEDS: APIXABAN 2.5 MG TAB PO SCH (08:39)
[2019-12-12] MEDS: MULTIVITAMIN TAB PO SCH (08:39)
[2019-12-12] MEDS: FERROUS GLUCONATE 324 MG TAB PO SCH (08:39)
[2019-12-12] MEDS: ASCORBIC ACID 500 MG TAB PO SCH (08:39)
[2019-12-12] MEDS: DOCUSATE SODIUM 100 MG CAP PO SCH (08:39)
[2019-12-12] MEDS: TRAMADOL HCL 50 MG TABLET PO PRN (08:42)
[2019-12-12] MEDS ORDERED: METOPROLOL SUCC 25MG EXT REL TAB PO STA (09:52)
--- NOTE | 2019-12-12 10:06 | Cardiology Consultation ---
Date of Consultation December 12, 2019 Assessment & Plan (1) Atrial flutter: Gibson Waller is a 74y/o M with PMH significant for Atrial flutter, HTN, HLD, and GERD; being seen in the hospital following having a Right TKA on 12/10/2019; on 12/11 had two episodes of nausea and light-headedness while working with PT/OT that resolved quickly after laying down. Atrial Flutter: - pt with known A. flutter, and has previously had good control with Metoprolol 50mg daily - worked with PT/OT today without return of n/v/lightheadedness - Echo 11/27/2019: Normal LV size, wall motion and systolic function; Mild LVH; No significant valvular pathology; with an EF of 55-60%. - EKG 12/12/2019: A flutter, with HR of 105 - given Metoprolol succinate 25mg now, with subsequent improvement in HR and BP - continue Eliquis 5mg BID - increase metoprolol to 75mg once a day Hypertension: - improvement in BP after additional dose of metoprolol - continue home lisinopril 20mg daily - increase metoprolol to 75mg once a day - advised patient to monitor and record BP/HR leading up to outpatient cardiology appointment (2) Benign essential hypertension: Supervising Physician Co-Signing Physician Notes Pt seen and examined with Dr. Hernandez. Agree with his assessment and plan. Impression: 1. Aflutter with rapid ventricular response - increase metoprolol succinate to 75 mg daily - increase Eliquis to 5 mg BID as per Dr. Liang 2. HTN - increase metoprolol as above - monitor BP and HR at home 3. Disposition - ventricular response adequately controlled after additional dose of metoprolol (for a total of 75 mg today). - stable for discharge History of Present Illness Reason for Consultation: HTN, tachycardia Attending Physician: Amadou Liang MD History of Present Illness Gibson Waller is a 74y/o M with PMH significant for Atrial flutter, HTN, HLD, chronic renal insuffiency, and GERD; being seen in the hospital following having a Right TKA on 12/10/2019; previously known to the group after discovery of atrial flutter during pre-operative evaluation. Started on Metoprolol ER 50mg daily, with Eliquis 5mg BID. On 12/11, while working with PT/OT had two episodes of nausea and light-headedness that resolved quickly after laying down. During these episodes, PT noted that patient had BP of 76/35, and HR of 174; with subsequent after 5 minutes with BP 168/94 and HR of 105. Has not continued to have any nausea, or lightheadedness while walking to bathroom throughout the morning. Denies shortness of breath, increased fatigue, exertional shortness of breath, shortness of breath when laying flat, chest pain, chest pressure, or chest tightness. Allergies Allergy/AdvReac Type Severity Reaction Status Date / Time No Known Drug Allergies Allergy Verified 12/10/19 05:58 Home Medications Home Medications Medication Instructions Recorded Confirmed Type esomeprazole magnesium 20 mg 20 mg PO DAILY PRN #90 cap 08/01/19 12/10/19 Rx capsule,delayed release atorvastatin 20 mg PO QAM 11/11/19 12/10/19 History lisinopril 20 mg PO QAM 11/11/19 12/10/19 History Wheeled Walker #1 ea 11/14/19 11/14/19 Rx apixaban 5 mg tablet 5 mg PO BID #60 tab 11/27/19 12/10/19 Rx metoprolol succinate 50 mg capsule 50 mg PO DAILY #30 ea 11/27/19 12/10/19 Rx sprinkle, ext. release 24 hr acetaminophen 1,000 mg PO Q8 30 Days #180 tab 12/10/19 Rx tramadol 50 - 100 mg PO Q6H PRN 14 Days #40 12/10/19 Rx tab metoprolol succinate 75 mg PO DAILY 30 Days #45 tab 12/12/19 Rx Patient History Medical History Arthritis Atrial flutter new onset diagnosed at PAT visit 11/14/19- sent to [facility] ER DJD (degenerative joint disease) of knee GERD (gastroesophageal reflux disease) controlled Hyperlipidemia Hypertension Osteoarthritis Renal insufficiency, mild Surgical History History of testicular surgery REMOVAL CYST Hx of colonoscopy Hx of hand surgery RIGHT RING FINGER (2/2 INFECTION) 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) s/p stress echo (2017) Family History Father Family hx of colon cancer Other Myocardial infarction Social History Preferred Language: Croatian Communication Ability: Effective Beliefs That Will Affect Care: None marital status: Current Living Situation: Spouse current occupational status: employed Feels Safe at Home: Yes Safety Concerns: Feels Safe At This Time Smoking Status: Never smoker Do You Dip or Chew Tobacco: No ; Second Hand Exposure: No ; Hx Alcohol Use: No Hx Substance Use: No caffeine: Yes Dental Care, Regularly: No Physical Activity Frequency: Daily Seatbelt Use: always Sunscreen Use: No Review of Systems Constitutional: no fever, no chills and no sweats Eyes: no diplopia, no photophobia, no spots in vision and no tunnel vision Ear, Nose, Mouth, Throat: no tinnitus, no dizziness, no change in voice and no hoarseness Respiratory: no cough, no dyspnea and no wheezing Cardiovascular: no chest pain, no radiating jaw, neck or arm pain, no dyspnea, no dyspnea on exertion, no orthopnea, no palpitations, no lightheadedness, no edema and no calf pain Gastrointestinal: no abdominal pain, no nausea, no vomiting and no change in stools Genitourinary: no dysuria, no urinary frequency, no urinary hesitancy and no urinary incontinence Hematologic / Lymphatic: no easy bleeding, no easy bruising and no lymphadenopathy Physical Exam Constitutional: WD/WN, vitals as above Eyes: PERRL, conjunctivae normal, anicteric sclerae Respiratory: normal respiratory effort, lungs clear to auscultation Cardiovascular: Rate/Rhythm: + tachycardic Heart Sounds: normal S1 and normal S2; no gallop, no murmur and no cardiac rub Vessels: normal peripheral pulses, posterior tibial pulses present, dorsalis pedis pulses present and radial pulses present; no JVD Extremities: no calf tenderness, no pedal edema and no edema Gastrointestinal (Abdomen): normal bowel sounds, soft, nontender, no hepatosplenomegaly Skin: no rashes, warm and dry Results & Data Vital Signs (Past 12 Hours) Vital Signs Temp Pulse Resp BP Pulse Ox 12/12/19 07:56 37.2 C 106 H 16 143/89 H 97 12/12/19 00:07 37.5 C 103 H 16 154/86 H 95 Medications Administered Current Inpatient Medications Acetaminophen (Tylenol) 1,000 mg PO Q8 [facility] Stop: 01/09/20 13:59 Last Admin: 12/12/19 05:24 Dose: 1,000 mg Documented by: Al Hydrox/Mg Hydrox/Simethicone (Maalox) 15 ml PO Q4H PRN PRN Reason: Heartburn Stop: 01/09/20 09:45 Apixaban (Eliquis) 2.5 mg PO BID [facility] Stop: 01/10/20 08:59 Last Admin: 12/12/19 08:39 Dose: 2.5 mg Documented by: Ascorbic Acid (Vitamin C) 500 mg PO BIDM [facility] Stop: 01/09/20 16:59 Last Admin: 12/12/19 08:39 Dose: 500 mg Documented by: Atorvastatin Calcium (Lipitor) 20 mg PO QAM [facility] Stop: 01/09/20 09:45 Last Admin: 12/12/19 08:38 Dose: 20 mg Documented by: Bisacodyl (Dulcolax) 10 mg DE DAILY PRN PRN Reason: Constipation Stop: 01/09/20 09:45 Docusate Sodium (Colace) 100 mg PO BID [facility] Stop: 01/09/20 09:45 Last Admin: 12/12/19 08:39 Dose: 100 mg Documented by: Ferrous Gluconate (Ferrous Gluconate) 324 mg PO BIDM [facility] Stop: 01/09/20 16:59 Last Admin: 12/12/19 08:39 Dose: 324 mg Documented by: Hydromorphone HCl (Dilaudid) 0.5 mg IV Q4H PRN PRN Reason: Pain Stop: 12/24/19 09:45 [facility]op[facility] (Zestril) [facility] Stop: 01/09/20 09:45 Last Admin: 12/12/19 08:38 Dose: 20 mg Documented by: Magnesium Hydroxide (Milk Of Magnesia) 30 ml PO Q6H PRN PRN Reason: Constipation Stop: 01/09/20 09:45 Metoclopramide HCl (Reglan) 10 mg IV Q6H PRN PRN Reason: Nausea And Vomiting Stop: 01/09/20 09:45 Metoprolol Succinate (Toprol Xl) 50 mg PO DAILY [facility] Stop: 01/10/20 08:59 Last Admin: 12/12/19 08:38 Dose: 50 mg Documented by: Multivitamins (Multivitamin Tab) 1 tab PO QAM [facility] Stop: 01/09/20 09:45 Last Admin: 12/12/19 08:39 Dose: 1 tab Documented by: Naloxone HCl (Narcan) 0.1 mg IV Q5M PRN PRN Reason: Oversedation/Resp Depression Stop: 01/09/20 09:45 Ondansetron HCl (Zofran) 4 mg IV Q6H PRN PRN Reason: Nausea And Vomiting Stop: 01/09/20 09:45 Last Admin: 12/11/19 15:40 Dose: 4 mg Documented by: Pantoprazole Sodium (Protonix) 40 mg PO DAILY PRN; Protocol PRN Reason: GERD Sennosides (Senokot) 17.2 mg PO HS [facility] Stop: 01/09/20 20:59 Last Admin: 12/11/19 21:13 Dose: 17.2 mg Documented by: Tamsulosin HCl (Flomax) 0.4 mg PO QAM PRN PRN Reason: unable to void Stop: 01/09/20 09:45 Tramadol HCl (Ultram) 50 - 100 mg PO Q6H PRN PRN Reason: Pain Stop: 01/09/20 09:45 Last Admin: 12/12/19 08:42 Dose: 50 mg Documented by: Resident Activity Tracking Resident Involvement: Resident Care Provided Care Provided: Adult Hospital Medicine
--- NOTE | 2019-12-12 14:24 | Electrocardiogram Report ---
Test Reason : Blood Pressure : / mmHG Vent. Rate : 107 BPM Atrial Rate : 271 BPM P-R Int : 000 ms QRS Dur : 090 ms QT Int : 340 ms P-R-T Axes : 000 036 011 degrees QTc Int : 453 ms Atrial flutter with variable A-V block Nonspecific ST and T wave abnormality Abnormal ECG When compared with ECG of 14-NOV-2019 11:20, Nonspecific T wave abnormality has replaced inverted T waves in Inferior leads Confirmed by Flavio Quezada ([id number]) on 12/12/2019 2:24:08 PM Referred By: Amadou Liang Confirmed By:Flavio Quezada
--- NOTE | 2019-12-16 16:33 | Discharge Summary (DS) ---
ADMITTING PHYSICIAN AND SURGEON: Dr. Amadou Liang. ADMITTING DIAGNOSIS: Right knee degenerative joint disease. SURGERY PERFORMED: Right total knee arthroplasty. SECONDARY DIAGNOSES: Congenital heart disease, history of atrial flutter, hypertension, elevated cholesterol, gastroesophageal reflux disease. CONSULTS: Dr. Quezada cardiology, hypertension and tachycardia. HISTORY AND PHYSICAL EXAMINATION: Well documented in the patient's chart. HOSPITAL COURSE: The patient was admitted on 12/10/2019 underwent total knee arthroplasty, tolerated the procedure well. There were no complications. He was transferred to the PACU postoperatively and later to the orthopedic floor for further care. He was given Ancef for antibiotic prophylaxis, JANICE stockings, SCDs and Eliquis for DVT prophylaxis. Hemoglobin, hematocrit and vital signs were monitored during his hospital stay and remained stable. He did not require any blood transfusions. He was tachycardic and cardiology was consulted during his hospital stay. He was seen by Dr. Quezada who recommended continued metoprolol as well as Eliquis. He was given the metoprolol in increased dose and had subsequent improvement in his heart rate and blood pressure. He is recommended to monitor his heart rate and blood pressure leading up to outpatient cardiology appointment. On postoperative day 2, he was tolerating a regular diet, pain was controlled with oral pain medicine. He was participating in physical therapy. Postop day 2, he was discharged home, set up with home health services. He was given printed discharge instructions as well as new prescriptions for extra strength Tylenol, metoprolol, tramadol. Continue his home medicines with the exception of his home dose of metoprolol which was changed. Continue physical therapy, weightbearing as tolerated, JANICE stockings. Follow up approximately 2 weeks postop or sooner if there are any problems or concerns.
== END 2019-12-12 14:51 | disposition home health service (06) | DRG 470 ==
LOC: ASU 04:51 → 3E 08:43 → INTOOBSV 08:43

== ENCOUNTER 2023-01-11 15:24 | Inpatient (IN) ==
[2023-01-11] MEDS ORDERED: MoRPHine SULFATE 10 MG/ML CARP/VIAL IV STA ×2 (15:56→17:18)
[2023-01-11] MEDS ORDERED: ONDANSETRON INJ 2 MG/ML 2 ML VIAL IV STA ×2 (15:56→17:18)
[2023-01-11 16:18] LABS: iSTAT Creatinine 1.4 mg/dl (0.6-1.3); iSTAT Hemoglobin 16.7 g/dl (14.0-18.0); iSTAT Ionized Calcium 1.12 mmol/l (1.12-1.32); iSTAT Potassium 4.5 mmol/L (3.3-5.0)
--- NOTE | 2023-01-11 16:24 | Emergency Department Note ---
Impression & Plan Closed rib fracture, Hematoma, Extravasation of blood ED Provider Note NAME: BASHIR MCNULTY II AGE: 77 SEX: M : 1945 ARRIVES VIA: Walk-In INFORMANT: Patient ED PROVIDER(S): Cirilo Hernandez DO CHIEF COMPLAINT: Right rib pain HPI: Patient is a 77-year-old [employer] who presents to the ER as he was pulling a pig out of the barn which was . He slipped and fell onto his right ribs. He is complaining of right rib pain. He does take Eliquis. Did not hit his head. No head or neck pain. No chest pain or shortness of breath. No belly pain, nausea, vomiting, or diarrhea. Pain is slightly worse when he takes a deep breath but mainly with movement. No dysuria, urgency, or frequency. No other exacerbating or remitting factors. PAST MEDICAL HISTORY:See Below PAST SURGICAL HISTORY:See Below FAMILY HISTORY:See Below SOCIAL HISTORY:See Below HOME MEDICATIONS:See Below ALLERGIES:See Below VITALS:See Below PHYSICAL EXAMINATION: GENERAL: alert, well appearing, well nourished, no distress, non-toxic HEAD: normal cephalic, atraumatic EYE EXAM: normal conjunctiva, PERRL and EOM's grossly intact OROPHARYNX: no exudate, no erythema, lips, buccal mucosa, and tongue normal and mucous membranes are moist NECK: supple, no nuchal rigidity, no adenopathy, non-tender CHEST: stable to compression anteriorly and posteriorly but significant pain in the right lateral lower chest wall LUNGS: clear to auscultation. Normal chest wall mechanics HEART: no murmurs, S1 normal and S2 normal ABDOMEN: abdomen soft, non-tender, normo-active bowel sounds, no masses, no rebound or guarding. PELVIS: stable to compression anteriorly and posteriorly bruising over the right posterior gluteus/hip BACK: Back is symmetrical on inspection and there is no deformity, no midline tenderness, no CVA tenderness. UPPER EXTREMITIES: full active and passive range of motion of all joints without tenderness to palpation LOWER EXTREMITIES: full active and passive range of motion of all joints without tenderness to palpation NEURO EXAM: Normal sensorium, cranial nerves II-XII grossly intact, normal speech, no gross weakness of arms, no gross weakness of legs. GCS: 15. MEDICAL DECISION MAKING: Patient is a 77-year-old male who presents ER following a mechanical fall while he was tracking up eating out of the barn. He does take a NOAC. IV was established blood work was obtained. He denies any head pain or neck pain. No head or neck trauma. Labs show mild leukocytosis of 12,000. Hemoglobin at 16.7. BMP along with LFTs bilirubin and lipase was unremarkable. COVID was n egative. CT abdomen and pelvis as well as the chest shows 2 rib fractures and a small amount of active extravasation over the right gluteal/hip region into the muscle. Patient was given IV morphine. He was updated bedside. He was discussed with the hospitalist Dr. Sonny Covarrubias for further observation and management due to the active extravasation of blood. Triage Nursing notes reviewed. Limited review of prior medical records performed Vital Signs: reviewed and remarkable for HTN and tachy Differential diagnosis: Differential diagnoses include major intracranial, cervical, spinal, thoracic, abdominal, pelvic and neurologic injury. Fracture, contusion, sprain, strain, laceration, abrasions included as well. ER treatment provided: See below Diagnostics interpreted by me include EKG and cardiac monitoring as listed below: -Cardiac Monitoring: An order was placed for continuous cardiac monitoring. The monitor shows a rate of 112 with sinus rhythm. -ECG: none -Laboratory studies:Interpreted by me as stated above in MDM and shown below. Imaging studies: Xrays: As interpreted by me:none CTs show: CT of the chest shows 2 rib fractures without hemo or pneumothorax CT abdomen pelvis shows small hematoma over the right hip/gluteus Consultation(s): Discussed with Dr. 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 Osteoarthritis Painful total knee replacement, right Renal insufficiency, mild Surgical History H/O total knee replacement History of testicular surgery History of total right knee replacement Hx of colonoscopy Hx of hand surgery Hx of heart surgery Family History Father Family hx of colon cancer Colorectal cancer Myocardial infarction Mother Myocardial infarction Denies family history of Ovarian cancer Prostate cancer Breast cancer Social History Smoking Status: Never smoker Second Hand Exposure: No; Hx Alcohol Use: Yes Hx Substance Use: No Preferred Language: Nepali Communication Ability: Effective Hearing Ability: Hard of Hearing Mdm Sr Required: No Beliefs That Will Affect Care: None marital status: Current Living Situation: Spouse current occupational status: employed current occupation: [employer] How many Children do You have: 2 Feels Safe at Home: Yes Childhood Exposure to Second-Hand Smoke: Yes caffeine: Yes Dental Care, Regularly: No Physical Activity Frequency: Daily Seatbelt Use: always Sunscreen Use: No Assistive Devices: Glasses and Walker Allergies Allergies Allergy/AdvReac Type Severity Reaction Status Date / Time tramadol AdvReac Mild depression, Verified 01/11/23 16:08 constipation Home Meds Home Medications Medication Instructions Recorded Confirmed ketoconazole 2 % topical cream 1 applic topical DAILY PRN Skin 02/22/22 01/11/23 Irritation acetaminophen 500 mg tablet 500 mg PO Q6H PRN Pain 01/11/23 01/11/23 (Tylenol Extra Strength) metoprolol succinate 50 mg 75 mg PO DAILY 01/11/23 01/11/23 tablet,extended release 24 hr Previous Rx's Medication Instructions Recorded esomeprazole magnesium 20 mg 20 mg PO DAILY PRN GERD #90 caps 08/01/19 capsule,delayed release (Nexium 24HR) atorvastatin 20 mg tablet 20 mg PO DAILY #90 tabs 06/17/22 lisinopril 20 mg tablet 20 mg PO QAM #90 tabs 06/17/22 apixaban 5 mg tablet (Eliquis) 5 mg PO BID #180 tabs 12/20/22 celecoxib 200 mg capsule (Celebrex) 200 mg PO DAILY #90 caps 12/23/22 Results & Data (ED) Vital Signs Vital Signs - 24 hr 01/11/23 15:24 01/11/23 15:49 01/11/23 15:49 Temperature 36.2 C L Temperature Source Temporal Artery Scan Pulse Rate 62 115 H Pulse Rate [Right Finger] 121 H Respiratory Rate 20 18 18 Respiratory Effort / Characteristics Non-Labored Spontaneous Non-Labored Spontaneous Respiratory Depth Normal Normal Respiratory Pattern Regular Blood Pressure [Right Arm] 158/109 H Blood Pressure Mean [Right Arm] 125 Blood Pressure Position [Right Arm] Sitting Pulse Oximetry 93 94 95 Oxygen Delivery Method Room Air Room Air Room Air Sepsis Recent Fever Within 48 Hours No Sepsis New/Unexplained Change in Mental Status No Sepsis Action Taken by Nursing No Action Required 01/11/23 17:07 01/11/23 19:03 Temperature Temperature Source Pulse Rate 123 H Pulse Rate [Right Finger] 110 H Respiratory Rate 16 Respiratory Effort / Characteristics Respiratory Depth Respiratory Pattern Blood Pressure [Right Arm] 140/78 Blood Pressure Mean [Right Arm] 98 Blood Pressure Position [Right Arm] Pulse Oximetry 94 Oxygen Delivery Method Room Air Sepsis Recent Fever Within 48 Hours Sepsis New/Unexplained Change in Mental Status Sepsis Action Taken by Nursing Laboratory Data 01/11/23 16:00 01/11/23 16:00 Lab Results 01/11/23 01/11/23 01/11/23 Range/Units 16:00 16:00 16:05 WBC 12.60 H (4.8-10.8) K/ul RBC 5.12 (4.70-6.10) M/uL Hgb 16.6 (14.0-18.0) g/dl POC Hgb 16.7 (14.0-18.0) g/dl Hct 48.9 (42.0-52.0) % POC Hct 49 (42-52) % MCV 95.5 (80.0-100.0) fL MCH 32.4 (25.0-34.0) pg MCHC 33.9 (32.0-36.0) g/dL RDW Std Deviation 46.6 H (36.4-46.3) fL RDW Coeff of Monisha 13.1 (11.5-14.5) % Plt Count 170 (130-400) K/uL MPV 10.7 (9.4-12.4) fL Immature Gran % (Auto) 0.5 % Neut % (Auto) 90.5 % Lymph % (Auto) 4.9 % [place] % (Auto) 3.7 % Eos % (Auto) 0.2 % Baso % (Auto) 0.2 % Neut # (Auto) 11.40 H (1.40-6.50) K/uL Lymph # (Auto) 0.62 L (1.2-3.4) K/uL [place] # (Auto) 0.47 (0.11-0.59) K/uL Eos # (Auto) 0.02 (0-0.50) K/uL Baso # (Auto) 0.03 (0-0.2) K/uL Immature Gran # (Auto) 0.06 (0.01-0.20) K/uL POC Sodium 142 (135-144) mmol/L Sodium 141 (136-145) mmol/L POC Potassium 4.5 (3.3-5.0) mmol/L Potassium 4.5 (3.5-5.1) mmol/L POC Chloride 105 (101-112) mmol/L Chloride 107 (98-107) mmol/L Carbon Dioxide 28 (21-32) mmol/L POC Total CO2 28 (24-31) mmol/L Anion Gap 6 (3-11) POC Anion Gap 14.0 L (16-25) mmol/L POC BUN 31 H (7-18) mg/dl BUN 30 H (6-23) mg/dl Creatinine 1.38 (0.6-1.4) mg/dl POC Creatinine 1.4 H (0.6-1.3) mg/dl Est Cr Clr Drug Dosing Not Reportable Est GFR ( Amer) 57.6 ml/min Est GFR (Non-Af Amer) 49.7 ml/min BUN/Creatinine Ratio 21.7 H (10-20) Glucose 118 H (70-99(Fasting)) mg/dl POC Glucose (other) 124 H (70-99) mg/dl Calcium 9.5 (8.5-10.1) mg/dl POC Ioniz Calcium Sofya 1.12 (1.12-1.32) mmol/l Total Bilirubin 0.8 (0.2-1.0) mg/dl AST 21 (13-39) U/L ALT 20 (7-52) U/L Alkaline Phosphatase 63 (34-104) U/L Total Protein 7.6 (6.0-8.3) gm/dl Albumin 4.7 (3.4-5.0) gm/dl Globulin 2.9 (2.5-4.0) gm/dl Albumin/Globulin Ratio 1.6 (0.9-2) Lipase 32 (11-82) U/L SARS-CoV-2, RNA, NAAT (NEGATIVE) 01/11/23 Range/Units 17:56 WBC (4.8-10.8) K/ul RBC (4.70-6.10) M/uL Hgb (14.0-18.0) g/dl POC Hgb (14.0-18.0) g/dl Hct (42.0-52.0) % POC Hct (42-52) % MCV (80.0-100.0) fL MCH (25.0-34.0) pg MCHC (32.0-36.0) g/dL RDW Std Deviation (36.4-46.3) fL RDW Coeff of Monisha (11.5-14.5) % Plt Count (130-400) K/uL MPV (9.4-12.4) fL Immature Gran % (Auto) % Neut % (Auto) % Lymph % (Auto) % [place] % (Auto) % Eos % (Auto) % Baso % (Auto) % Neut # (Auto) (1.40-6.50) K/uL Lymph # (Auto) (1.2-3.4) K/uL [place] # (Auto) (0.11-0.59) K/uL Eos # (Auto) (0-0.50) K/uL Baso # (Auto) (0-0.2) K/uL Immature Gran # (Auto) (0.01-0.20) K/uL POC Sodium (135-144) mmol/L Sodium (136-145) mmol/L POC Potassium (3.3-5.0) mmol/L Potassium (3.5-5.1) mmol/L POC Chloride (101-112) mmol/L Chloride (98-107) mmol/L Carbon Dioxide (21-32) mmol/L POC Total CO2 (24-31) mmol/L Anion Gap (3-11) POC Anion Gap (16-25) mmol/L POC BUN (7-18) mg/dl BUN (6-23) mg/dl Creatinine (0.6-1.4) mg/dl POC Creatinine (0.6-1.3) mg/dl Est Cr Clr Drug Dosing Est GFR ( Amer) ml/min Est GFR (Non-Af Amer) ml/min BUN/Creatinine Ratio (10-20) Glucose (70-99(Fasting)) mg/dl POC Glucose (other) (70-99) mg/dl Calcium (8.5-10.1) mg/dl POC Ioniz Calcium Sofya (1.12-1.32) mmol/l Total Bilirubin (0.2-1.0) mg/dl AST (13-39) U/L ALT (7-52) U/L Alkaline Phosphatase (34-104) U/L Total Protein (6.0-8.3) gm/dl Albumin (3.4-5.0) gm/dl Globulin (2.5-4.0) gm/dl Albumin/Globulin Ratio (0.9-2) Lipase (11-82) U/L SARS-CoV-2, RNA, NAAT NEGATIVE (NEGATIVE) Administered Medications Discontinued Medications Sodium Chloride (Nss) 500 mls @ 999 mls/hr IV .Q31M ONE Stop: 01/11/23 17:59 Last Infusion: 01/11/23 18:26 Dose: 0 mls/hr Documented By: Admin: 01/11/23 17:48 Dose: 999 mls/hr Documented By: EMMETT Ioversol (Optiray 350 100ml) 88 ml IV ONCE ONE Stop: 01/11/23 16:41 Last Admin: 01/11/23 16:40 Dose: 88 ml Documented By: JAIR Morphine Sulfate (Morphine Sulfate 10 Mg/Ml Carp/Vial) 6 mg IV NOW STA Stop: 01/11/23 15:57 Last Admin: 01/11/23 16:14 Dose: 6 mg Documented By: EMMETT Morphine Sulfate (Morphine Sulfate 10 Mg/Ml Carp/Vial) 6 mg IV NOW STA Stop: 01/11/23 17:19 Last Admin: 01/11/23 17:29 Dose: 6 mg Documented By: EMMETT Ondansetron HCl (Ondansetron Inj 2 Mg/Ml 2 Ml Vial) 4 mg IV NOW STA Stop: 01/11/23 15:57 Last Admin: 01/11/23 16:13 Dose: 4 mg Documented By: EMMETT Ondansetron HCl (Ondansetron Inj 2 Mg/Ml 2 Ml Vial) 4 mg IV NOW STA Stop: 01/11/23 17:19 Last Admin: 01/11/23 17:28 Dose: 4 mg Documented By: EMMETT Imaging Data Radiologist's Impression: Abdomen/Pelvis CT 01/11/23 15:56 CT SCAN OF THE CHEST, ABDOMEN, AND PELVIS WITH IV CONTRAST CLINICAL HISTORY: Fall. Right-sided back and chest wall pain. COMPARISON STUDY: Chest x-ray dated 11/14/2019. TECHNIQUE: Following the IV administration of 88 of Optiray 350, CT scan of the chest, abdomen, and pelvis was performed from the thoracic inlet to the proximal femora. Images are reviewed in the axial, sagittal, and coronal planes. IV contrast was administered without complication. A dose lowering technique was utilized adhering to the principles of ALARA. The examinations are degraded by motion artifact, as well as by streak artifact from the arms which could not be elevated above the chest or abdomen. CT DOSE: 2092.88 mGy.cm FINDINGS: CHEST: Thyroid: Imaged portions of the thyroid gland are normal in size and attenuation. Thoracic aorta: There is mild atherosclerotic calcification of the thoracic aorta, which is normal in caliber and demonstrates standard 3-vessel arch anatomy. No dissection is seen. Pulmonary vasculature: The pulmonary trunk is normal in caliber. There are no filling defects identified in the central pulmonary vessels to indicate pulmonary embolus. Note that this examination was not protocoled for evaluation of the pulmonary arteries. Heart: The heart is enlarged and without pericardial effusion. The coronary arteries are densely calcified. Lungs and pleural spaces: Evaluation of the lung parenchyma is degraded by motion artifact. There is no airspace consolidation, pleural effusion, or pneumothorax. The trachea and central airways are clear. Scarring/atelectasis is noted at both lung bases. Mediastinum: There are calcified subcarinal nodes. There is no mediastinal hematoma or lymphadenopathy. Trina: Clear. Axillae: There is no axillary lymphadenopathy. Bony thorax: The skeletal structures are osteopenic. There are acute right posterolateral 9th and 10th rib fractures. The remainder of the bony thorax appears intact. Degenerative change and hyperkyphosis is noted in the thoracic spine. A large hemangioma is seen in the body of T9. No lytic or blastic lesions are identified. Arthritic change is seen in the shoulders. ABDOMEN AND PELVIS: Liver: The contrast-enhanced liver is normal in size, contour, and attenuation. There is no intrahepatic biliary ductal dilatation. The hepatic veins and portal veins are patent. A 2.4 cm right lobe cyst is incidentally noted. Gallbladder: Unremarkable. Spleen: Normal in size and attenuation. There are scattered calcified splenic granulomas. Pancreas: Unremarkable. Adrenal glands: Unremarkable. Kidneys: The contrast enhanced kidneys demonstrate cortical atrophy and are without hydronephrosis. The kidneys enhance symmetrically. Renal sinus cysts are seen bilaterally. A 4.5 cm exophytic cyst arises from the right lower pole. Abdominal vasculature: The abdominal aorta is normal in course and caliber noting moderate atherosclerotic calcification. Stomach and bowel: There is a large hiatal hernia, with majority of the stomach located in the thorax. There is [id number] colonic diverticulosis without CT evidence of acute diverticulitis. No bowel obstruction is seen. The appendix is well-visualized and normal. Peritoneum: There is no intraperitoneal free air or abdominal ascites. Lymphadenopathy: None. Pelvic viscera: The prostate gland is mildly enlarged and heterogeneous noticing median lobe hypertrophy. The bladder wall is thickened and trabeculated indicating chronic outlet obstruction. Bladder diverticula measure up to 2.5 cm. There is a small fat-containing left inguinal hernia. Skeletal structures: The skeletal structures are osteopenic. Lumbosacral spine, bony pelvis, and proximal femora appear intact. There is moderate lumbosacral spondylosis. Degenerative change is noted in the sacroiliac joints. No lytic or blastic lesions are seen. There is soft tissue contusion/hematoma in the right lower back/flank. A hematoma overlying the right gluteal musculature on image #336 measures 7.5 x 4.8 cm. There are foci of active extravasation within this hematoma seen on image #324. IMPRESSION: 1. There are acute right posterolateral 9th and 10th rib fractures. 2. No additional fracture is seen. 3. There is no airspace consolidation, pleural effusion, or pneumothorax. 4. There is no evidence of solid organ injury in the abdomen or pelvis. 5. There is a large soft tissue contusion in the right lower back and flank. 6. A subcutaneous hematoma is seen overlying the right gluteal musculature. This shows foci of active extravasation. 7. Cardiomegaly. 8. Large hiatal hernia. 9. Colonic diverticulosis without CT evidence of acute diverticulitis. 10. Prostatomegaly with evidence of chronic bladder outlet obstruction. 11. Additional findings as above. ACT 112: Negative or not required by law. Electronically signed by: Jose Carlos Solis M.D. 01/11/2023 5:[address] 01/11/23 15:56 CT SCAN OF THE CHEST, ABDOMEN, AND PELVIS WITH IV CONTRAST CLINICAL HISTORY: Fall. Right-sided back and chest wall pain. COMPARISON STUDY: Chest x-ray dated 11/14/2019. TECHNIQUE: Following the IV administration of 88 of Optiray 350, CT scan of the chest, abdomen, and pelvis was performed from the thoracic inlet to the proximal femora. Images are reviewed in the axial, sagittal, and coronal planes. IV contrast was administered without complication. A dose lowering technique was utilized adhering to the principles of ALARA. The examinations are degraded by motion artifact, as well as by streak artifact from the arms which could not be elevated above the chest or abdomen. CT DOSE: 2092.88 mGy.cm FINDINGS: CHEST: Thyroid: Imaged portions of the thyroid gland are normal in size and attenuation. Thoracic aorta: There is mild atherosclerotic calcification of the thoracic aorta, which is normal in caliber and demonstrates standard 3-vessel arch anatomy. No dissection is seen. Pulmonary vasculature: The pulmonary trunk is normal in caliber. There are no filling defects identified in the central pulmonary vessels to indicate pulmonary embolus. Note that this examination was not protocoled for evaluation of the pulmonary arteries. Heart: The heart is enlarged and without pericardial effusion. The coronary arteries are densely calcified. Lungs and pleural spaces: Evaluation of the lung parenchyma is degraded by motion artifact. There is no airspace consolidation, pleural effusion, or pneumothorax. The trachea and central airways are clear. Scarring/atelectasis is noted at both lung bases. Mediastinum: There are calcified subcarinal nodes. There is no mediastinal he matoma or lymphadenopathy. Trina: Clear. Axillae: There is no axillary lymphadenopathy. Bony thorax: The skeletal structures are osteopenic. There are acute right posterolateral 9th and 10th rib fractures. The remainder of the bony thorax appears intact. Degenerative change and hyperkyphosis is noted in the thoracic spine. A large hemangioma is seen in the body of T9. No lytic or blastic lesions are identified. Arthritic change is seen in the shoulders. ABDOMEN AND PELVIS: Liver: The contrast-enhanced liver is normal in size, contour, and attenuation. There is no intrahepatic biliary ductal dilatation. The hepatic veins and portal veins are patent. A 2.4 cm right lobe cyst is incidentally noted. Gallbladder: Unremarkable. Spleen: Normal in size and attenuation. There are scattered calcified splenic granulomas. Pancreas: Unremarkable. Adrenal glands: Unremarkable. Kidneys: The contrast enhanced kidneys demonstrate cortical atrophy and are without hydronephrosis. The kidneys enhance symmetrically. Renal sinus cysts are seen bilaterally. A 4.5 cm exophytic cyst arises from the right lower pole. Abdominal vasculature: The abdominal aorta is normal in course and caliber noting moderate atherosclerotic calcification. Stomach and bowel: There is a large hiatal hernia, with majority of the stomach located in the thorax. There is [id number] colonic diverticulosis without CT evidence of acute diverticulitis. No bowel obstruction is seen. The appendix is well-visualized and normal. Peritoneum: There is no intraperitoneal free air or abdominal ascites. Lymphadenopathy: None. Pelvic viscera: The prostate gland is mildly enlarged and heterogeneous noticing median lobe hypertrophy. The bladder wall is thickened and trabeculated indicating chronic outlet obstruction. Bladder diverticula measure up to 2.5 cm. There is a small fat-containing left inguinal hernia. Skeletal structures: The skeletal structures are osteopenic. Lumbosacral spine, bony pelvis, and proximal femora appear intact. There is moderate lumbosacral spondylosis. Degenerative change is noted in the sacroiliac joints. No lytic or blastic lesions are seen. There is soft tissue contusion/hematoma in the right lower back/flank. A hematoma overlying the right gluteal musculature on image #336 measures 7.5 x 4.8 cm. There are foci of active extravasation within this hematoma seen on image #324. IMPRESSION: 1. There are acute right posterolateral 9th and 10th rib fractures. 2. No additional fracture is seen. 3. There is no airspace consolidation, pleural effusion, or pneumothorax. 4. There is no evidence of solid organ injury in the abdomen or pelvis. 5. There is a large soft tissue contusion in the right lower back and flank. 6. A subcutaneous hematoma is seen overlying the right gluteal musculature. This shows foci of active extravasation. 7. Cardiomegaly. 8. Large hiatal hernia. 9. Colonic diverticulosis without CT evidence of acute diverticulitis. 10. Prostatomegaly with evidence of chronic bladder outlet obstruction. 11. Additional findings as above. ACT 112: Negative or not required by law. Electronically signed by: Jose Carlos Solis M.D. 01/11/2023 5:00 PM Discharge Plan Visit Data Chief Complaint: Fall Stated Complaint: FALL, POSSIBLE BROKEN RIBS, BACK PAIN ED Provider: Cirilo Hernandez Discharge Problem: Closed rib fracture, Hematoma, Extravasation of blood Forms Stand Alone Forms: My [facility] Prescriptions Prescriptions: No Action esomeprazole magnesium [Nexium 24HR] 20 mg capsule,delayed release(DR/EC) 20 mg PO DAILY PRN (Reason: GERD) Qty: 90 3RF atorvastatin 20 mg tablet 20 mg PO DAILY Qty: 90 3RF lisinopril 20 mg tablet 20 mg PO QAM Qty: 90 3RF Eliquis 5 mg tablet 5 mg PO BID Qty: 180 3RF celecoxib [Celebrex] 200 mg capsule 200 mg PO DAILY Qty: 90 3RF Hold Instructions: stopped taking Rx Instructions: place on file till needed ketoconazole 2 % cream 1 applic topical DAILY PRN (Reason: Skin Irritation) acetaminophen [Tylenol Extra Strength] 500 mg Tablet 500 mg PO Q6H PRN (Reason: Pain) metoprolol succinate 50 mg tablet extended release 24 hr 75 mg PO DAILY Referrals Referrals: Lilibeth Bonner CRNP [Primary Care Provider] -
[2023-01-11 16:32] LABS: Hematocrit (blood only) 48.9 % (42.0-52.0); Hemoglobin 16.6 g/dl (14.0-18.0); Mean Corpuscular Hemoglobin 32.4 pg (25.0-34.0); Mean Corpuscular Hgb Conc 33.9 g/dL (32.0-36.0); Mean Corpuscular Volume 95.5 fL (80.0-100.0); Mean Platelet Volume 10.7 fL (9.4-12.4); Platelet Count 170 K/uL (130-400); RDW Coefficient of Variation 13.1 % (11.5-14.5); RDW Standard Deviation 46.6 fL (36.4-46.3); Red Blood Count 5.12 M/uL (4.70-6.10)
[2023-01-11 16:38] LABS: Alanine Aminotransferase 20 U/L (7-52); Albumin Globulin Ratio 1.6 (0.9-2); Albumin Level 4.7 gm/dl (3.4-5.0); Alkaline Phosphatase 63 U/L (34-104); Anion Gap 6 (3-11); Aspartate Aminotransferase 21 U/L (13-39); BUN Creatinine Ratio 21.7 (10-20); Bilirubin,Total 0.8 mg/dl (0.2-1.0); Blood Urea Nitrogen 30 mg/dl (6-23); Calcium 9.5 mg/dl (8.5-10.1); Carbon Dioxide 28 mmol/L (21-32); Chloride 107 mmol/L (98-107); Est GFR (African American) 57.6 ml/min; Est GFR (Non-African American) 49.7 ml/min; Globulin 2.9 gm/dl (2.5-4.0); Glucose 118 mg/dl (70-99(Fasting)); Lipase 32 U/L (11-82); Potassium 4.5 mmol/L (3.5-5.1); Sodium 141 mmol/L (136-145); Total Protein 7.6 gm/dl (6.0-8.3)
[2023-01-11] MEDS ORDERED: OPTIRAY 350 100ml IV ONE (16:40)
--- NOTE | 2023-01-11 17:01 | CT Scan Report ---
CT SCAN OF THE CHEST, ABDOMEN, AND PELVIS WITH IV CONTRAST CLINICAL HISTORY: Fall. Right-sided back and chest wall pain. COMPARISON STUDY: Chest x-ray dated 11/14/2019. TECHNIQUE: Following the IV administration of 88 of Optiray 350, CT scan of the chest, abdomen, and p edward was performed from the thoracic inlet to the proximal femora. Images are reviewed in the axial, sagittal, and coronal planes. IV contrast was administered without complication. A dose lowering te chnique was utilized adhering to the principles of ALARA. The examinations are degraded by motion art ifact, as well as by streak artifact from the arms which could not be elevated above the chest or abd omen. CT DOSE: 2092.88 mGy.cm FINDINGS: CHEST: Thyroid: Imaged portions of the thyroid gland are normal in size and attenuation. Thoracic aorta: There is mild atherosclerotic calcification of the thoracic aorta, which is normal in caliber and demonstrates standard 3-vessel arch anatomy. No dissection is seen. Pulmonary vasculature: The pulmonary trunk is normal in caliber. There are no filling defects identif ied in the central pulmonary vessels to indicate pulmonary embolus. Note that this examination was no t protocoled for evaluation of the pulmonary arteries. Heart: The heart is enlarged and without pericardial effusion. The coronary arteries are densely calc ified. Lungs and pleural spaces: Evaluation of the lung parenchyma is degraded by motion artifact. There is no airspace consolidation, pleural effusion, or pneumothorax. The trachea and central airways are ibeth ar. Scarring/atelectasis is noted at both lung bases. Mediastinum: There are calcified subcarinal nodes. There is no mediastinal hematoma or lymphadenopath y. Trina: Clear. Axillae: There is no axillary lymphadenopathy. Bony thorax: The skeletal structures are osteopenic. There are acute right posterolateral 9th and 10t h rib fractures. The remainder of the bony thorax appears intact. Degenerative change and hyperkyphos is is noted in the thoracic spine. A large hemangioma is seen in the body of T9. No lytic or blastic lesions are identified. Arthritic change is seen in the shoulders. ABDOMEN AND PELVIS: Liver: The contrast-enhanced liver is normal in size, contour, and attenuation. There is no intrahepa tic biliary ductal dilatation. The hepatic veins and portal veins are patent. A 2.4 cm right lobe cys t is incidentally noted. Gallbladder: Unremarkable. Spleen: Normal in size and attenuation. There are scattered calcified splenic granulomas. Pancreas: Unremarkable. Adrenal glands: Unremarkable. Kidneys: The contrast enhanced kidneys demonstrate cortical atrophy and are without hydronephrosis. T he kidneys enhance symmetrically. Renal sinus cysts are seen bilaterally. A 4.5 cm exophytic cyst yun ses from the right lower pole. Abdominal vasculature: The abdominal aorta is normal in course and caliber noting moderate atheroscle rotic calcification. Stomach and bowel: There is a large hiatal hernia, with majority of the stomach located in the thorax . There is [id number] colonic diverticulosis without CT evidence of acute diverticulitis. No nita wel obstruction is seen. The appendix is well-visualized and normal. Peritoneum: There is no intraperitoneal free air or abdominal ascites. Lymphadenopathy: None. Pelvic viscera: The prostate gland is mildly enlarged and heterogeneous noticing median lobe hypertro phy. The bladder wall is thickened and trabeculated indicating chronic outlet obstruction. Bladder di verticula measure up to 2.5 cm. There is a small fat-containing left inguinal hernia. Skeletal structures: The skeletal structures are osteopenic. Lumbosacral spine, bony pelvis, and prox imal femora appear intact. There is moderate lumbosacral spondylosis. Degenerative change is noted in the sacroiliac joints. No lytic or blastic lesions are seen. There is soft tissue contusion/hematoma in the right lower back/flank. A hematoma overlying the right gluteal musculature on image #336 abril ures 7.5 x 4.8 cm. There are foci of active extravasation within this hematoma seen on image #324. IMPRESSION: 1. There are acute right posterolateral 9th and 10th rib fractures. 2. No additional fracture is seen. 3. There is no airspace consolidation, pleural effusion, or pneumothorax. 4. There is no evidence of solid organ injury in the abdomen or pelvis. 5. There is a large soft tissue contusion in the right lower back and flank. 6. A subcutaneous hematoma is seen overlying the right gluteal musculature. This shows foci of active extravasation. 7. Cardiomegaly. 8. Large hiatal hernia. 9. Colonic diverticulosis without CT evidence of acute diverticulitis. 10. Prostatomegaly with evidence of chronic bladder outlet obstruction. 11. Additional findings as above. ACT 112: Negative or not required by law. Electronically signed by: Jose Carlos Solis M.D. 01/11/2023 5:00 PM
[2023-01-11 17:09] LABS: Basophils # (auto) 0.03 K/uL (0-0.2); Basophils % (auto) 0.2 %; Eosinophils # (auto) 0.02 K/uL (0-0.50); Eosinophils % (auto) 0.2 %; Immature Granulocytes # (auto) 0.06 K/uL (0.01-0.20); Immature Granulocytes % (auto) 0.5 %; Lymphocytes # (auto) 0.62 K/uL (1.2-3.4); Lymphocytes % (auto) 4.9 %; Monocytes # (auto) 0.47 K/uL (0.11-0.59); Monocytes % (auto) 3.7 %; Neutrophils % (auto) 90.5 %
[2023-01-11] MEDS ORDERED: SODIUM CHLORIDE 0.9% 500 ML IV ONE (17:29)
--- NOTE | 2023-01-11 18:26 | History & Physical Report ---
Date of Service January 11, 2023 Assessment & Plan (1) Right rib fracture: (2) Hematoma and contusion: (3) Atrial flutter: (4) Renal insufficiency, mild: (5) Arthritis: (6) Hyperlipidemia: (7) GERD without esophagitis: (8) Benign essential hypertension: Donya Arreaga is a 77M with history of R Total Knee Replacement, Atrial Flutter, Renal Insufficiency, Arthritis, HLD, GERD, and HTN who presented for evaluation after a fall and was found to have R posterolateral 9th and 10th rib fractures. Right Superior Buttock Hematoma - Acute, a/w mechanical fall - Non-painful at baseline or w/ touch - Hgb wnl, repeat CBC in AM - Patient on Eliquis, held at admission - Continue to monitor for progression/change in size - Marked on initial evaluation R Rib Fractures (Posterolateral 9th and 10th) - Acute, a/w mechanical fall - Non-displaced, tachycardic, 94% on room air - Painful at baseline and TTP - Minimal relief with Morphine, patient requesting Tylenol - Patient prefers to avoid narcotic medications - Patient takes Celebrex at home, held on admission - Tylenol ordered - Incentive spirometry ordered Atrial Flutter - Chronic, stable - Patient follows closely w/ Cardiology - Managed on Metoprolol and Eliquis - Eliquis held on admission Arthritis/DJD - Patient is s/p total knee replacement (R) d/t DJD/arthritis - Ongoing pain in bilateral knees and hands - Patient takes Celebrex at home, held on admission - Patient also manages pain with Tylenol at home, ordered HLD - Chronic - Held home statin GERD - Chronic - Continue home PPI HTN - Chronic, stable - Managed with Lisinopril Renal Insufficiency - GFR 49, Cr 1.38 - Continue to monitor - Continue Lisinopril FEN: Heart Healthy Code status: DNR/DNI DVT ppx: Eliquis held d/t Hematoma Isolation: None Dispo:Med/Surg History of Present Illness Chief Complaint: Fall Primary Care Provider: ANNALISE Mojica Gibson is a 77M with history of R Total Knee Replacement, Atrial Flutter (on Eliquis), Renal Insufficiency, Arthritis, HLD, GERD, and HTN who presented for evaluation after a fall and was found to have R posterolateral 9th and 10th rib fractures. Patient notes that this morning around 9:30 he was pulling a pig out of his barn with a snare and the snare slipped causing him to fall backwards onto a nearby oyster washer. 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 He notes that originally he was not going to come in, but when he sat down to have lunch, the pain prompted him to come in for evaluation. Patient denies any chest pain, dyspnea, abdominal pain, headaches, or vision changes prior to the incident. He is actively experiencing right sided rib pain. He notes that over the last few years his activity levels have decreased due to worsening osteoarthritis, he primarily manages his pain with Tylenol and Celebrex at home. Patient notes that he would prefer to avoid narcotic medications as he had a poor experience after his knee surgery d/t depressoin and constipation. Medications: Reviewed Allergies: Reviewed ER Course: Morphine 6 mg x 2, Zofran x 2, NSS Allergies Allergy/AdvReac Type Severity Reaction Status Date / Time tramadol AdvReac Mild depression, Verified 01/11/23 16:08 constipation Home Medications Medication Instructions Recorded Confirmed Type esomeprazole magnesium 20 mg 20 mg PO DAILY PRN GERD #90 caps 08/01/19 01/11/23 Rx capsule,delayed release (Nexium 24HR) ketoconazole 2 % topical cream 1 applic topical DAILY PRN Skin 02/22/22 01/11/23 History Irritation atorvastatin 20 mg tablet 20 mg PO DAILY #90 tabs 06/17/22 01/11/23 Rx lisinopril 20 mg tablet 20 mg PO QAM #90 tabs 06/17/22 01/11/23 Rx apixaban 5 mg tablet (Eliquis) 5 mg PO BID #180 tabs 12/20/22 01/11/23 Rx celecoxib 200 mg capsule (Celebrex) 200 mg PO DAILY #90 caps 12/23/22 01/11/23 Rx acetaminophen 500 mg tablet 500 mg PO Q6H PRN Pain 01/11/23 01/11/23 History (Tylenol Extra Strength) metoprolol succinate 50 mg 75 mg PO DAILY 01/11/23 01/11/23 History tablet,extended release 24 hr Past Med/Surg History Medical History Arthritis Colon, diverticulosis DJD (degenerative joint disease) of knee Left knee DJD Osteoarthritis Painful total knee replacement, right Renal insufficiency, mild Surgical History H/O total knee replacement History of testicular surgery History of total right knee replacement Hx of colonoscopy Hx of hand surgery Hx of heart surgery Family History Father Family hx of colon cancer Colorectal cancer Myocardial infarction Mother Myocardial infarction Denies family history of Ovarian cancer Prostate cancer Breast cancer Social History Smoking Status: Never smoker Second Hand Exposure: No; Hx Alcohol Use: No Hx Substance Use: No Preferred Language: Vietnamese Communication Ability: Effective Hearing Ability: Hard of Hearing Cashier Self Service Gasoline Required: No Beliefs That Will Affect Care: None marital status: Current Living Situation: Spouse current occupational status: employed current occupation: [employer] How many Children do You have: 2 Feels Safe at Home: Yes Safety Concerns: Feels Safe At This Time Childhood Exposure to Second-Hand Smoke: Yes caffeine: Yes Dental Care, Regularly: No Physical Activity Frequency: Daily Seatbelt Use: always Sunscreen Use: No Assistive Devices: Glasses and Walker Review of Systems Review of Systems: As per HPI Physical Exam Physical Exam: Gen: NAD, alert, interactive HEENT: Supple, no LAD, no thyromegaly, no JVD Resp:Non-labored, no wheezing/rhonchi/rales, CTAB, TTP of right posterior- inferior rib cage CV:tachycardic, RR, normal S1/S2, no M/R/G Abd: Soft, non-distended, no TTP, normoactive bowels, no masses Extr: 2+ dp bilaterally, trace edema Skin: Palpable hematoma on right superior-lateral buttock, measuring 8 cm across w/o erythema or ecchymosis Results & Data Results & Data ([facility]) Vital Signs (Past 12 Hours) Vital Signs Temp Pulse Pulse Resp BP Pulse Ox O2 Del Method 01/11/23 17:07 123 H 01/11/23 15:49 115 H 18 95 Room Air 01/11/23 15:49 121 H 18 158/109 H 94 Room Air 01/11/23 15:24 36.2 C L 62 20 93 Room Air Diagnostic Findings Abdomen/Pelvis CT 01/11/23 15:56 CT SCAN OF THE CHEST, ABDOMEN, AND PELVIS WITH IV CONTRAST CLINICAL HISTORY: Fall. Right-sided back and chest wall pain. COMPARISON STUDY: Chest x-ray dated 11/14/2019. TECHNIQUE: Following the IV administration of 88 of Optiray 350, CT scan of the chest, abdomen, and pelvis was performed from the thoracic inlet to the proximal femora. Images are reviewed in the axial, sagittal, and coronal planes. IV c ontrast was administered without complication. A dose lowering technique was utilized adhering to the principles of ALARA. The examinations are degraded by motion artifact, as well as by streak artifact from the arms which could not be elevated above the chest or abdomen. CT DOSE: 2092.88 mGy.cm FINDINGS: CHEST: Thyroid: Imaged portions of the thyroid gland are normal in size and attenuat ion. Thoracic aorta: There is mild atherosclerotic calcification of the thoracic aorta, which is normal in caliber and demonstrates standard 3-vessel arch anatomy. No dissection is seen. Pulmonary vasculature: The pulmonary trunk is normal in caliber. There are no filling defects identified in the central pulmonary vessels to indicate pulmonary embolus. Note that this examination was not protocoled for evaluation of the pulmonary arteries. Heart: The heart is enlarged and without pericardial effusion. The coronary arteries are densely calcified. Lungs and pleural spaces: Evaluation of the lung parenchyma is degraded by motion artifact. There is no airspace consolidation, pleural effusion, or pneumothorax. The trachea and central airways are clear. Scarring/atelectasis is noted at both lung bases. Mediastinum: There are calcified subcarinal nodes. There is no mediastinal hematoma or lymphadenopathy. Trina: Clear. Axillae: There is no axillary lymphadenopathy. Bony thorax: The skeletal structures are osteopenic. There are acute right posterolateral 9th and 10th rib fractures. The remainder of the bony thorax appears intact. Degenerative change and hyperkyphosis is noted in the thoracic spine. A large hemangioma is seen in the body of T9. No lytic or blastic lesions are identified. Arthritic change is seen in the shoulders. ABDOMEN AND PELVIS: Liver: The contrast-enhanced liver is normal in size, contour, and attenuation. There is no intrahepatic biliary ductal dilatation. The hepatic veins and portal veins are patent. A 2.4 cm right lobe cyst is incidentally noted. Gallbladder: Unremarkable. Spleen: Normal in size and attenuation. There are scattered calcified splenic granulomas. Pancreas: Unremarkable. Adrenal glands: Unremarkable. Kidneys: The contrast enhanced kidneys demonstrate cortical atrophy and are without hydronephrosis. The kidneys enhance symmetrically. Renal sinus cysts are seen bilaterally. A 4.5 cm exophytic cyst arises from the right lower pole. Abdominal vasculature: The abdominal aorta is normal in course and caliber noting moderate atherosclerotic calcification. Stomach and bowel: There is a large hiatal hernia, with majority of the stomach located in the thorax. There is [id number] colonic diverticulosis without CT evidence of acute diverticulitis. No bowel obstruction is seen. The appendix is well-visualized and normal. Peritoneum: There is no intraperitoneal free air or abdominal ascites. Lymphadenopathy: None. Pelvic viscera: The prostate gland is mildly enlarged and heterogeneous noticing median lobe hypertrophy. The bladder wall is thickened and trabeculated indicating chronic outlet obstruction. Bladder diverticula measure up to 2.5 cm. There is a small fat-containing left inguinal hernia. Skeletal structures: The skeletal structures are osteopenic. Lumbosacral spine, bony pelvis, and proximal femora appear intact. There is moderate lumbosacral spondylosis. Degenerative change is noted in the sacroiliac joints. No lytic or blastic lesions are seen. There is soft tissue contusion/hematoma in the right lower back/flank. A hematoma overlying the right gluteal musculature on image #336 measures 7.5 x 4.8 cm. There are foci of active extravasation within this hematoma seen on image #324. IMPRESSION: 1. There are acute right posterolateral 9th and 10th rib fractures. 2. No additional fracture is seen. 3. There is no airspace consolidation, pleural effusion, or pneumothorax. 4. There is no evidence of solid organ injury in the abdomen or pelvis. 5. There is a large soft tissue contusion in the right lower back and flank. 6. A subcutaneous hematoma is seen overlying the right gluteal musculature. This shows foci of active extravasation. 7. Cardiomegaly. 8. Large hiatal hernia. 9. Colonic diverticulosis without CT evidence of acute diverticulitis. 10. Prostatomegaly with evidence of chronic bladder outlet obstruction. 11. Additional findings as above. ACT 112: Negative or not required by law. Electronically signed by: Jose Carlos Solis M.D. 01/11/2023 5:[address] 01/11/23 15:56 CT SCAN OF THE CHEST, ABDOMEN, AND PELVIS WITH IV CONTRAST CLINICAL HISTORY: Fall. Right-sided back and chest wall pain. COMPARISON STUDY: Chest x-ray dated 11/14/2019. TECHNIQUE: Following the IV administration of 88 of Optiray 350, CT scan of the chest, abdomen, and pelvis was performed from the thoracic inlet to the proximal femora. Images are reviewed in the axial, sagittal, and coronal planes. IV cont rast was administered without complication. A dose lowering technique was utilized adhering to the principles of ALARA. The examinations are degraded by motion artifact, as well as by streak artifact from the arms which could not be elevated above the chest or abdomen. CT DOSE: 2092.88 mGy.cm FINDINGS: CHEST: Thyroid: Imaged portions of the thyroid gland are normal in size and attenuation . Thoracic aorta: There is mild atherosclerotic calcification of the thoracic aorta, which is normal in caliber and demonstrates standard 3-vessel arch anatomy. No dissection is seen. Pulmonary vasculature: The pulmonary trunk is normal in caliber. There are no filling defects identified in the central pulmonary vessels to indicate pulmonary embolus. Note that this examination was not protocoled for evaluation of the pulmonary arteries. Heart: The heart is enlarged and without pericardial effusion. The coronary arteries are densely calcified. Lungs and pleural spaces: Evaluation of the lung parenchyma is degraded by motion artifact. There is no airspace consolidation, pleural effusion, or pneumothorax. The trachea and central airways are clear. Scarring/atelectasis is noted at both lung bases. Mediastinum: There are calcified subcarinal nodes. There is no mediastinal hematoma or lymphadenopathy. Trina: Clear. Axillae: There is no axillary lymphadenopathy. Bony thorax: The skeletal structures are osteopenic. There are acute right posterolateral 9th and 10th rib fractures. The remainder of the bony thorax appears intact. Degenerative change and hyperkyphosis is noted in the thoracic spine. A large hemangioma is seen in the body of T9. No lytic or blastic lesions are identified. Arthritic change is seen in the shoulders. ABDOMEN AND PELVIS: Liver: The contrast-enhanced liver is normal in size, contour, and attenuation. There is no intrahepatic biliary ductal dilatation. The hepatic veins and portal veins are patent. A 2.4 cm right lobe cyst is incidentally noted. Gallbladder: Unremarkable. Spleen: Normal in size and attenuation. There are scattered calcified splenic granulomas. Pancreas: Unremarkable. Adrenal glands: Unremarkable. Kidneys: The contrast enhanced kidneys demonstrate cortical atrophy and are without hydronephrosis. The kidneys enhance symmetrically. Renal sinus cysts are seen bilaterally. A 4.5 cm exophytic cyst arises from the right lower pole. Abdominal vasculature: The abdominal aorta is normal in course and caliber noting moderate atherosclerotic calcification. Stomach and bowel: There is a large hiatal hernia, with majority of the stomach located in the thorax. There is [id number] colonic diverticulosis without CT evidence of acute diverticulitis. No bowel obstruction is seen. The appendix is well-visualized and normal. Peritoneum: There is no intraperitoneal free air or abdominal ascites. Lymphadenopathy: None. Pelvic viscera: The prostate gland is mildly enlarged and heterogeneous noticing median lobe hypertrophy. The bladder wall is thickened and trabeculated indicating chronic outlet obstruction. Bladder diverticula measure up to 2.5 cm. There is a small fat-containing left inguinal hernia. Skeletal structures: The skeletal structures are osteopenic. Lumbosacral spine, bony pelvis, and proximal femora appear intact. There is moderate lumbosacral spondylosis. Degenerative change is noted in the sacroiliac joints. No lytic or blastic lesions are seen. There is soft tissue contusion/hematoma in the right lower back/flank. A hematoma overlying the right gluteal musculature on image #336 measures 7.5 x 4.8 cm. There are foci of active extravasation within this hematoma seen on image #324. IMPRESSION: 1. There are acute right posterolateral 9th and 10th rib fractures. 2. No additional fracture is seen. 3. There is no airspace consolidation, pleural effusion, or pneumothorax. 4. There is no evidence of solid organ injury in the abdomen or pelvis. 5. There is a large soft tissue contusion in the right lower back and flank. 6. A subcutaneous hematoma is seen overlying the right gluteal musculature. This shows foci of active extravasation. 7. Cardiomegaly. 8. Large hiatal hernia. 9. Colonic diverticulosis without CT evidence of acute diverticulitis. 10. Prostatomegaly with evidence of chronic bladder outlet obstruction. 11. Additional findings as above. ACT 112: Negative or not required by law. Electronically signed by: Jose Carlos Solis M.D. 01/11/2023 5:00 PM Code Status & VTE Plan Code Status DNR/DNI Supervising Physician Co-Signing Physician Notes I personally saw and examined the patient. 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 O/E HS irregular rhythm, regular rate, no murmurs, Chest CTAB, Right sided chest pain on palpation, Abdo SNT, 5cm circular hematoma over lateral right gluteus muscle with pain to palpation A/P Right sided 9th and 10th rib fractures - incentive spirometer, pain management Right gluteal hematoma - given foci of active extravasation recommend holding anticoagulation and NSAIDs currently. CBC with AM labs. Resident Activity Tracking Resident Involvement: Resident Care Provided Care Provided: Adult Hospital Medicine (3) Atrial flutter Atrial flutter type: unspecified Qualified Code(s): I48.92 - Unspecified atrial flutter
[2023-01-11] MEDS ORDERED: oxyCODONE HCL IR 5 MG TAB (IMMEDIATE RELEASE) PO PRN (21:21)
[2023-01-11] MEDS ORDERED: PANTOprazole 40 MG TAB PO PRN (21:26)
[2023-01-11] MEDS: ACETAMINOPHEN 500 MG TAB PO SCH (21:53)
[2023-01-11] MEDS: DOCUSATE SODIUM 100 MG CAP PO SCH (21:53)
--- NOTE | 2023-01-11 23:59 | Billing Data ---
Date of Service January 11, 2023 Coding Level of Care Code 72629 INT INP/OBS CARE
[2023-01-12 06:10] LABS: BUN Creatinine Ratio 20.6 (10-20); Calcium 8.6 mg/dl (8.5-10.1); Creatinine Clr Calc Pharmacy 60.6 ml/min; Est GFR (African American) 64.2 ml/min; Est GFR (Non-African American) 55.4 ml/min
[2023-01-12 06:42] LABS: Hematocrit (blood only) 39.9 % (42.0-52.0); Hemoglobin 13.7 g/dl (14.0-18.0); Mean Corpuscular Hemoglobin 32.6 pg (25.0-34.0); Mean Corpuscular Hgb Conc 34.3 g/dL (32.0-36.0); Mean Platelet Volume 10.4 fL (9.4-12.4); Platelet Count 141 K/uL (130-400); RDW Coefficient of Variation 13.3 % (11.5-14.5); RDW Standard Deviation 47.1 fL (36.4-46.3); White Blood Count 8.18 K/ul (4.8-10.8)
[2023-01-12] MEDS: ACETAMINOPHEN 500 MG TAB PO SCH (08:06)
[2023-01-12] MEDS: DOCUSATE SODIUM 100 MG CAP PO SCH (08:06)
--- NOTE | 2023-01-12 08:07 | Hospitalist Progress Note ---
Date of Service January 12, 2023 Assessment & Plan (1) Right rib fracture: (2) Hematoma and contusion: (3) Atrial flutter: (4) Renal insufficiency, mild: (5) Arthritis: (6) Hyperlipidemia: (7) GERD without esophagitis: (8) Benign essential hypertension: Donya Arreaga is a 77M with history of R Total Knee Replacement, Atrial Flutter, Renal Insufficiency, Arthritis, HLD, GERD, and HTN who presented for evaluation after a fall and was found to have R posterolateral 9th and 10th rib fractures. Right Superior Buttock Hematoma - Acute, a/w mechanical fall - Non-painful at baseline or w/ touch - Hgb wnl, repeat CBC in AM - Patient on Eliquis, held at admission - Continue to monitor for progression/change in size - Marked on initial evaluation R Rib Fractures (Posterolateral 9th and 10th) - Acute, a/w mechanical fall - Non-displaced, tachycardic, 94% on room air - Painful at baseline and TTP - Minimal relief with Morphine, patient requesting Tylenol - Patient prefers to avoid narcotic medications - Patient takes Celebrex at home, held on admission - Tylenol ordered - Incentive spirometry ordered Atrial Flutter - Chronic, stable - Patient follows closely w/ Cardiology - Managed on Metoprolol and Eliquis - Eliquis held on admission Arthritis/DJD - Patient is s/p total knee replacement (R) d/t DJD/arthritis - Ongoing pain in bilateral knees and hands - Patient takes Celebrex at home, held on admission - Patient also manages pain with Tylenol at home, ordered HLD - Chronic - Held home statin GERD - Chronic - Continue home PPI HTN - Chronic, stable - Managed with Lisinopril Renal Insufficiency - GFR 49, Cr 1.38 - Continue to monitor - Continue Lisinopril FEN: Heart Healthy Code status: DNR/DNI DVT ppx: Eliquis held d/t Hematoma Isolation: None Dispo:Med/Surg Admission and Anticipated Discharge Date Admission Date: January 11, 2023 Results & Data Results & Data ([facility]) Vital Signs (Past 12 Hours) Vital Signs Temp Pulse Pulse Resp BP Pulse Ox O2 Del Method 01/12/23 08:04 36.7 C 85 16 117/75 95 Room Air 01/12/23 07:46 Room Air 01/11/23 21:49 Room Air 01/11/23 21:28 36.8 C 99 H 18 144/97 H 95 Room Air 01/11/23 21:00 36.8 C 99 H 18 144/97 H 95 Room Air 01/11/23 20:30 109 H 17 (3) Atrial flutter Atrial flutter type: unspecified Qualified Code(s): I48.92 - Unspecified atrial flutter
[2023-01-12] MEDS ORDERED: lisinopril 20 MG TAB PO SCH (09:00)
[2023-01-12] MEDS ORDERED: METOPROLOL SUCC 25MG EXT REL TAB PO SCH (09:00)
[2023-01-12 10:29] LABS: Hematocrit (blood only) 42.9 % (42.0-52.0); Hemoglobin 14.6 g/dl (14.0-18.0)
--- NOTE | 2023-01-12 13:06 | Discharge Summary ---
Date of Service January 12, 2023 Admission HPI Per Admitting Provider Gibson is a 77M with history of R Total Knee Replacement, Atrial Flutter (on Eliquis), Renal Insufficiency, Arthritis, HLD, GERD, and HTN who presented for evaluation after a fall and was found to have R posterolateral 9th and 10th rib fractures. Patient notes that this morning around 9:30 he was pulling a pig out of his barn with a snare and the snare slipped causing him to fall backwards onto a nearby washer machine. 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 He notes that originally he was not going to come in, but when he sat down to have lunch, the pain prompted him to come in for evaluation. Patient denies any chest pain, dyspnea, abdominal pain, headaches, or vision changes prior to the incident. He is actively experiencing right sided rib pain. He notes that over the last few years his activity levels have decreased due to worsening osteoarthritis, he primarily manages his pain with Tylenol and Celebrex at home. Patient notes that he would prefer to avoid narcotic medications as he had a poor experience after his knee surgery d/t depressoin and constipation. Medications: Reviewed Allergies: Reviewed ER Course: Morphine 6 mg x 2, Zofran x 2, NSS Admission Exam Per Admitting Provider Gen: NAD, alert, interactive HEENT: Supple, no LAD, no thyromegaly, no JVD Resp:Non-labored, no wheezing/rhonchi/rales, CTAB, TTP of right posterior- inferior rib cage CV:tachycardic, RR, normal S1/S2, no M/R/G Abd: Soft, non-distended, no TTP, normoactive bowels, no masses Extr: 2+ dp bilaterally, trace edema Skin: Palpable hematoma on right superior-lateral buttock, measuring 8 cm across w/o erythema or ecchymosis Principal Diagnosis Rib Fractures, Hematoma of Buttock Discharge Exam Constitutional WD/WN, vitals as above Eyes Anicteric sclera ENMT Moist mucous membranes Respiratory normal respiratory effort, lungs clear to auscultation Pain with light palpation of right posterior lower ribs Cardiovascular RRR, no murmur, no edema Skin Small ecchymosis below right lumbar region, no tenderness noted Psychiatric A+Ox3, euthymic affect Discharge Data Allergies Allergy/AdvReac Type Severity Reaction Status Date / Time tramadol AdvReac Mild depression, Verified 01/11/23 16:08 constipation Consultations 01/11/23 17:29 ED Decision to Admit Stat Ordered Studies 01/11/23 15:56 CT abd pelvis IV con only Stat CT chest diagnostic w con Stat Abdomen/Pelvis CT 01/11/23 15:56 CT SCAN OF THE CHEST, ABDOMEN, AND PELVIS WITH IV CONTRAST CLINICAL HISTORY: Fall. Right-sided back and chest wall pain. COMPARISON STUDY: Chest x-ray dated 11/14/2019. TECHNIQUE: Following the IV administration of 88 of Optiray 350, CT scan of the chest, abdomen, and pelvis was performed from the thoracic inlet to the proximal femora. Images are reviewed in the axial, sagittal, and coronal planes. IV contrast was administered without complication. A dose lowering technique was utilized adhering to the principles of ALARA. The examinations are degraded by motion artifact, as well as by streak artifact from the arms which could not be elevated above the chest or abdomen. CT DOSE: 2092.88 mGy.cm FINDINGS: CHEST: Thyroid: Imaged portions of the thyroid gland are normal in size and attenuation. Thoracic aorta: There is mild atherosclerotic calcification of the thoracic aorta, which is normal in caliber and demonstrates standard 3-vessel arch anatomy. No dissection is seen. Pulmonary vasculature: The pulmonary trunk is normal in caliber. There are no filling defects identified in the central pulmonary vessels to indicate pulmonary embolus. Note that this examination was not protocoled for evaluation of the pulmonary arteries. Heart: The heart is enlarged and without pericardial effusion. The coronary arteries are densely calcified. Lungs and pleural spaces: Evaluation of the lung parenchyma is degraded by motion artifact. There is no airspace consolidation, pleural effusion, or pneumothorax. The trachea and central airways are clear. Scarring/atelectasis is noted at both lung bases. Mediastinum: There are calcified subcarinal nodes. There is no mediastinal hematoma or lymphadenopathy. Trina: Clear. Axillae: There is no axillary lymphadenopathy. Bony thorax: The skeletal structures are osteopenic. There are acute right posterolateral 9th and 10th rib fractures. The remainder of the bony thorax appears intact. Degenerative change and hyperkyphosis is noted in the thoracic spine. A large hemangioma is seen in the body of T9. No lytic or blastic lesions are identified. Arthritic change is seen in the shoulders. ABDOMEN AND PELVIS: Liver: The contrast-enhanced liver is normal in size, contour, and attenuation. There is no intrahepatic biliary ductal dilatation. The hepatic veins and portal veins are patent. A 2.4 cm right lobe cyst is incidentally noted. Gallbladder: Unremarkable. Spleen: Normal in size and attenuation. There are scattered calcified splenic granulomas. Pancreas: Unremarkable. Adrenal glands: Unremarkable. Kidneys: The contrast enhanced kidneys demonstrate cortical atrophy and are without hydronephrosis. The kidneys enhance symmetrically. Renal sinus cysts are seen bilaterally. A 4.5 cm exophytic cyst arises from the right lower pole. Abdominal vasculature: The abdominal aorta is normal in course and caliber noting moderate atherosclerotic calcification. Stomach and bowel: There is a large hiatal hernia, with majority of the stomach located in the thorax. There is [id number] colonic diverticulosis without CT evidence of acute diverticulitis. No bowel obstruction is seen. The appendix is well-visualized and normal. Peritoneum: There is no intraperitoneal free air or abdominal ascites. Lymphadenopathy: None. Pelvic viscera: The prostate gland is mildly enlarged and heterogeneous noticing median lobe hypertrophy. The bladder wall is thickened and trabeculated indicating chronic outlet obstruction. Bladder diverticula measure up to 2.5 cm. There is a small fat-containing left inguinal hernia. Skeletal structures: The skeletal structures are osteopenic. Lumbosacral spine, bony pelvis, and proximal femora appear intact. There is moderate lumbosacral spondylosis. Degenerative change is noted in the sacroiliac joints. No lytic or blastic lesions are seen. There is soft tissue contusion/hematoma in the right lower back/flank. A hematoma overlying the right gluteal musculature on image #336 measures 7.5 x 4.8 cm. There are foci of active extravasation within this hematoma seen on image #324. IMPRESSION: 1. There are acute right posterolateral 9th and 10th rib fractures. 2. No additional fracture is seen. 3. There is no airspace consolidation, pleural effusion, or pneumothorax. 4. There is no evidence of solid organ injury in the abdomen or pelvis. 5. There is a large soft tissue contusion in the right lower back and flank. 6. A subcutaneous hematoma is seen overlying the right gluteal musculature. This shows foci of active extravasation. 7. Cardiomegaly. 8. Large hiatal hernia. 9. Colonic diverticulosis without CT evidence of acute diverticulitis. 10. Prostatomegaly with evidence of chronic bladder outlet obstruction. 11. Additional findings as above. ACT 112: Negative or not required by law. Electronically signed by: Jose Carlos Solis M.D. 01/11/2023 5:[address] 01/11/23 15:56 CT SCAN OF THE CHEST, ABDOMEN, AND PELVIS WITH IV CONTRAST CLINICAL HISTORY: Fall. Right-sided back and chest wall pain. COMPARISON STUDY: Chest x-ray dated 11/14/2019. TECHNIQUE: Following the IV administration of 88 of Optiray 350, CT scan of the chest, abdomen, and pelvis was performed from the thoracic inlet to the proximal femora. Images are reviewed in the axial, sagittal, and coronal planes. IV contrast was administered without complication. A dose lowering technique was utilized adhering to the principles of ALARA. The examinations are degraded by motion artifact, as well as by streak artifact from the arms which could not be elevated above the chest or abdomen. CT DOSE: 2092.88 mGy.cm FINDINGS: CHEST: Thyroid: Imaged portions of the thyroid gland are normal in size and attenuation. Thoracic aorta: There is mild atherosclerotic calcification of the thoracic aorta, which is normal in caliber and demonstrates standard 3-vessel arch anatomy. No dissection is seen. Pulmonary vasculature: The pulmonary trunk is normal in caliber. There are no filling defects identified in the central pulmonary vessels to indicate pulmonary embolus. Note that this examination was not protocoled for evaluation of the pulmonary arteries. Heart: The heart is enlarged and without pericardial effusion. The coronary arteries are densely calcified. Lungs and pleural spaces: Evaluation of the lung parenchyma is degraded by motion artifact. There is no airspace consolidation, pleural effusion, or pneumothorax. The trachea and central airways are clear. Scarring/atelectasis is noted at both lung bases. Mediastinum: There are calcified subcarinal nodes. There is no mediastinal hematoma or lymphadenopathy. Trina: Clear. Axillae: There is no axillary lymphadenopathy. Bony thorax: The skeletal structures are osteopenic. There are acute right posterolateral 9th and 10th rib fractures. The remainder of the bony thorax appears intact. Degenerative change and hyperkyphosis is noted in the thoracic spine. A large hemangioma is seen in the body of T9. No lytic or blastic lesions are identified. Arthritic change is seen in the shoulders. ABDOMEN AND PELVIS: Liver: The contrast-enhanced liver is normal in size, contour, and attenuation. There is no intrahepatic biliary ductal dilatation. The hepatic veins and portal veins are patent. A 2.4 cm right lobe cyst is incidentally noted. Gallbladder: Unremarkable. Spleen: Normal in size and attenuation. There are scattered calcified splenic granulomas. Pancreas: Unremarkable. Adrenal glands: Unremarkable. Kidneys: The contrast enhanced kidneys demonstrate cortical atrophy and are without hydronephrosis. The kidneys enhance symmetrically. Renal sinus cysts are seen bilaterally. A 4.5 cm exophytic cyst arises from the right lower pole. Abdominal vasculature: The abdominal aorta is normal in course and caliber noting moderate atherosclerotic calcification. Stomach and bowel: There is a large hiatal hernia, with majority of the stomach located in the thorax. There is [id number] colonic diverticulosis without CT evidence of acute diverticulitis. No bowel obstruction is seen. The appendix is well-visualized and normal. Peritoneum: There is no intraperitoneal free air or abdominal ascites. Lymphadenopathy: None. Pelvic viscera: The prostate gland is mildly enlarged and heterogeneous noticing median lobe hypertrophy. The bladder wall is thickened and trabeculated indicating chronic outlet obstruction. Bladder diverticula measure up to 2.5 cm. There is a small fat-containing left inguinal hernia. Skeletal structures: The skeletal structures are osteopenic. Lumbosacral spine, bony pelvis, and proximal femora appear intact. There is moderate lumbosacral sp ondylosis. Degenerative change is noted in the sacroiliac joints. No lytic or blastic lesions are seen. There is soft tissue contusion/hematoma in the right lower back/flank. A hematoma overlying the right gluteal musculature on image #336 measures 7.5 x 4.8 cm. There are foci of active extravasation within this hematoma seen on image #324. IMPRESSION: 1. There are acute right posterolateral 9th and 10th rib fractures. 2. No additional fracture is seen. 3. There is no airspace consolidation, pleural effusion, or pneumothorax. 4. There is no evidence of solid organ injury in the abdomen or pelvis. 5. There is a large soft tissue contusion in the right lower back and flank. 6. A subcutaneous hematoma is seen overlying the right gluteal musculature. This shows foci of active extravasation. 7. Cardiomegaly. 8. Large hiatal hernia. 9. Colonic diverticulosis without CT evidence of acute diverticulitis. 10. Prostatomegaly with evidence of chronic bladder outlet obstruction. 11. Additional findings as above. ACT 112: Negative or not required by law. Electronically signed by: Jose Carlos Solis M.D. 01/11/2023 5:00 PM Hospital Course (1) Right rib fracture: (2) Hematoma and contusion: (3) Atrial flutter: (4) Renal insufficiency, mild: (5) Arthritis: (6) Hyperlipidemia: (7) GERD without esophagitis: (8) Benign essential hypertension: Donya Arreaga is a 77M with history of R Total Knee Replacement, Atrial Flutter, Renal Insufficiency, Arthritis, HLD, GERD, and HTN who presented for evaluation after a fall and was found to have R posterolateral 9th and 10th rib fractures. Right Superior Buttock Hematoma Acute, a/w mechanical fall. Patient notes that region is not currently painful, but hematoma noted on CT scan. Hemoglobin did drop from 16.6 to 13.7 and then later to 14.6 at time of discharge. He denied any lightheadedness, dizziness. Eliquis was held due to this hematoma. Will defer to PCP/cardiology for re- evaluation on timeline for restarting Eliquis/Celebrex/Statin. R Rib Fractures (Posterolateral 9th and 10th) Acute, a/w mechanical fall. Fractures are non-displaced, but painful and tender to palpation. Patient treated with Morphine, later Tylenol- per patient preference avoided further narcotics during stay and at discharge. Celebrex and Eliquis being held due to hematoma as described above. Atrial Flutter Chronic, stable- patient follows closely w/ cardiology. Managed on Metoprolol and Eliquis (Eliquis held due to hematoma). Arthritis/DJD Patient is s/p total knee replacement (R) d/t DJD/arthritis, ongoing pain in bilateral knees and hands. Patient takes Celebrex at home, held during admission/time of discharge due to hematoma. Continued home Tylenol for pain control HLD Chronic, held home statin. GERD Chronic, continue home PPI HTN Chronic, stable. Managed with Lisinopril Renal Insufficiency GFR 49, Cr 1.38 --> 1.26 at time of discharge. Continue Lisinopril Total Time Total Time Spent Total Time Spent (In Minutes): . Discharge Plan Discharge Items Patient Disposition: Home - Self-Care Reason For Visit: FALL, POSSIBLE BROKEN RIBS, BACK PAIN Discharge Diagnosis: Rib Fractures, Hematoma of Buttock Activity: Per Instructions section Non-emergency contact: Primary Care Provider Call non-emergency contact if: you have any medication questions and your symptoms worsen Follow-up/Referrals: Lilibeth Bonner CRNP [Primary Care Provider] - 01/19/23 11:45 am (Hospital Discharge Follow Up within [address] PERKINS) Diet: Regular Addtl Attending Provider Instructions: Mr. Waller, you were admitted to the hospital after a fall at home. After CT images were taken of your abdomen and chest, you were found to have 2 posterior rib fractures at the 9th and 10th right ribs as well as a hematoma at your right buttock. We monitored your blood count with repeat blood work since you are on a blood thinner, Eliquis, and although you had an initial drop in hemoglobin as expected, when we rechecked the hemoglobin later in the day it had increased. We will continue to hold your Eliquis at time of discharge, please discuss with Dr. Quezada and/or your PCP to reevaluate the timeline of when to restart your Eliqui s. Pain control: -Tylenol 1000mg every 8 hours as needed for pain -Unfortunately broken ribs can be painful for several weeks, it will take time to fully heal Follow Up: * Primary Care Doctor- please make an appointment with your PCP for a hospital discharge follow up appointment within 1 week of discharge. -You should discuss with your PCP and/or Dr. Quezada the plan for when to restart your blood thinner, Eliquis. * Cardiology- please keep your scheduled routine appointment with Dr. Quezada for tomorrow, 01/13. Medication changes: The following medications will be held at discharge- -Celebrex -Atorvastatin -Eliquis * These medications will be listed as "discontinued" on your discharge information, but we are just holding these medications until you discuss with your primary care doctor next week. If you develop the follow symptoms, please go to the ER for evaluation: -Chest pain -New onset shortness of breath -Dizziness/lightheadedness Pending Studies at Discharge: No Stand-Alone Forms: My [facility], Smoking Cessation Medications and DC Order Prescriptions: New acetaminophen [Tylenol Extra Strength] 500 mg Tablet 1,000 mg PO TID Qty: 0 0RF Continued esomeprazole magnesium [Nexium 24HR] 20 mg capsule,delayed release(DR/EC) 20 mg PO DAILY PRN (Reason: GERD) Qty: 90 3RF lisinopril 20 mg tablet 20 mg PO QAM Qty: 90 3RF ketoconazole 2 % cream 1 applic topical DAILY PRN (Reason: Skin Irritation) metoprolol succinate 50 mg tablet extended release 24 hr 75 mg PO DAILY Discontinued atorvastatin 20 mg tablet 20 mg PO DAILY Qty: 90 3RF Eliquis 5 mg tablet 5 mg PO BID Qty: 180 3RF celecoxib [Celebrex] 200 mg capsule 200 mg PO DAILY Qty: 90 3RF Hold Instructions: stopped taking Rx Instructions: place on file till needed acetaminophen [Tylenol Extra Strength] 500 mg Tablet 500 mg PO Q6H PRN (Reason: Pain) Discharge Orders: Discharge Order (Routine); Ordered 01/12/23 Ordered By: Katy Garcia Admission Data Admit Date/Time: 01/11/23 19:16 Attending Provider: Carmen Darling Admit Provider: Sonny Covarrubias Primary Care Provider: Lilibeth Bonner Other Providers: Sonny Covarrubias Other Interventions: Discharge Summary Assessment (RN) Last Done: 01/12/23 13:11 Supervising Physician Co-Signing Physician Notes Resident Physician Supervision Note: I independently interviewed and examined the patient and verified the etienne history and physical, reviewed labs and image studies and agree with resident findings and care plan. Resident Activity Tracking Resident Involvement: Resident Care Provided Care Provided: Adult Hospital Medicine
== END 2023-01-12 14:58 | disposition home or self-care (01) | DRG 184 ==
LOC: ED 15:24 → SUATTDRO 19:16 → 3E 19:16